=== PATIENT | female | born 1970 | race Caucasian/White ===

== ENCOUNTER 2019-02-02 19:59 | Inpatient (IN) | payer MEDICARE, OTHER ==
[2019-02-02] MEDS ORDERED: methylPREDNISolone SOD SUCCI 125 MG/2 ML VIAL IV STA (21:01)
[2019-02-02] MEDS ORDERED: RX INFO: IV CONTRAST WAS GIVEN 1 EACH MISC MISCELLANE PRN (21:01)
[2019-02-02] MEDS ORDERED: IPRATROPIUM-ALBUTEROL 3 ML NEB INHALATION STA (21:01)
[2019-02-02] MEDS ORDERED: MAGNESIUM SULFATE-D5W PMX 1 GM in DEXTROSE/WATER 1 100ML.BAG IVPB ONE (21:03)
[2019-02-02 21:15] LABS: Anisocytosis Slight; Basophils % (A) 1 %; Eosinophils # (A) 0.2 k/uL (0-0.7); Eosinophils % (A) 3 %; HCT 34.1 % (34.0-46.0); HGB 10.4 gm/dL (11.4-16.0); Hypochromasia Moderate; Lymphocytes # (A) 1.5 k/uL (1.0-4.8); Lymphocytes % (A) 17 %; MCH 24.5 pg (25.0-35.0); MCHC 30.4 g/dL (31.0-37.0); MCV 80.7 fL (80.0-100.0); Mean Platelet Volume 6.8; Microcytosis Slight; Monocytes # (A) 0.6 k/uL (0-1.0); Monocytes % (A) 6 %; Neutrophils # (A) 6.3 k/uL (1.3-7.7); Neutrophils % (A) 71 %; Platelet Count 349 k/uL (150-450); Poikilocytosis Slight; RBC 4.23 m/uL (3.80-5.40); RDW 18.4 % (11.5-15.5); WBC 8.8 k/uL (3.8-10.6)
[2019-02-02 21:24] LABS: ALT 28 U/L (9-52); AST 20 U/L (14-36); African American GFR (CKD) >90 (>60 ml/min/1.73 sqM); Albumin 4.2 g/dL (3.5-5.0); Alkaline Phosphatase 84 U/L (38-126); Anion Gap 10 mmol/L; Blood Urea Nitrogen 15 mg/dL (7-17); Calcium 9.4 mg/dL (8.4-10.2); Carbon Dioxide 22 mmol/L (22-30); Chloride 109 mmol/L (98-107); Glucose 115 mg/dL (74-99); Magnesium 1.6 mg/dL (1.6-2.3); Potassium 4.2 mmol/L (3.5-5.1); Sodium 141 mmol/L (137-145); Total Bilirubin 0.5 mg/dL (0.2-1.3); Total Protein 6.7 g/dL (6.3-8.2)
[2019-02-02 21:35] LABS: D-Dimer 0.3 mg/L FEU (<0.60); INR 0.9 (<1.2); Partial Thromboplastin Time 23.5 sec (22.0-30.0)
--- NOTE | 2019-02-02 21:38 | CT ---
EXAMINATION TYPE: CT chest w con DATE OF EXAM: 02/02/2019 COMPARISON: None HISTORY: Hemoptysis. CT DLP: 460.2 mGycm Automated exposure control for dose reduction was used. CONTRAST: CT scan of the chest is performed with IV Contrast, patient injected with 100ml mL of Isovue 300. FINDINGS: The lungs are clear of infiltrate. There is no evidence of a pulmonary mass. There is no pleural effu inez. There is very small linear density at the right posterior lung base consistent with focal atele ctasis. There is no evidence of pericardial effusion. Heart size is normal. There is no mediastinal adenopathy. There are no hilar masses. Upper abdominal soft tissues are unremarkable. Visualized trachea appears normal. There is no bronchiectasis. Thoracic aorta appears normal. Thoracic vertebra appear intact. Ribs appear intact. Sternum appears normal. IMPRESSION: Negative CT scan of the chest. I do not see a cause for hemoptysis. Minimal focal subseg mental atelectasis right posterior lung base.
--- NOTE | 2019-02-02 22:01 | ED ---
URI HPI - General Chief Complaint: Upper Respiratory Infection Stated Complaint: Coughing up blood Time Seen by Provider: 02/02/19 20:10 Source: patient, family Mode of arrival: ambulatory Limitations: no limitations - History of Present Illness Initial Comments: The patient is a 40 year female who presents emergency Department with reported shortness of breath. She does have a history of bronchitis, pneumonia, COPD and congestive heart failure. States that over the past several months she has had a productive cough. She's been hospitalized twice, once at [place] and once at [facility]. States she was treated for exacerbation of COPD as well as pneumonia. She was provided with antibiotics and steroids at discharge. States that she finished that approximately one week ago. Since then, the patient had a significant decline. States that she is increasingly short of breath and has worsening wheeze. She has been using her inhalers and nebulizer as directed however her symptoms have worsened. She is also reporting bilateral lower ex tremity edema. She admits to continued smoking. Smokes 5-10 cigarettes per day. States that the breathing is worse when she lays flat. She denies chest pain, vomiting, abdominal pain, chest palpitations, calf pain. Today, she was coughing so hard that she coughed up a small amount of clotted blood. No alleviating, precipitating or modifying factors - Related Data Home Medications Medication Instructions Recorded Confirmed Acetaminophen [Tylenol 8 Hour] 650 mg PO Q4H PRN MDD 6 TAB/24 HR 02/02/19 02/02/19 Albuterol Inhaler [Ventolin Hfa 2 puff INHALATION RT-Q6H PRN 02/02/19 02/03/19 Inhaler] Albuterol Nebulized [Ventolin 2.5 mg INHALATION QID PRN 02/02/19 02/02/19 Nebulized] Atorvastatin [Lipitor] 40 mg PO HS 02/02/19 02/02/19 Benzonatate [Tessalon Perles] 100 mg PO TID PRN 02/02/19 02/02/19 Carvedilol [Coreg] 3.125 mg PO BID 02/02/19 02/02/19 Ibuprofen [Motrin] 600 mg PO Q6HR PRN 02/02/19 02/02/19 Levothyroxine Sodium [Synthroid] 75 mcg PO DAILY 02/02/19 02/02/19 Montelukast Sodium [Singulair] 10 mg PO DAILY 02/02/19 02/02/19 OXcarbazepine [Trileptal] 150 mg PO BID 02/02/19 02/02/19 Omeprazole [PriLOSEC] 20 mg PO AC-BID 02/02/19 02/02/19 Ondansetron HCl [Zofran] 8 mg PO Q6H PRN 02/02/19 02/02/19 Potassium Chloride [Klor-Con 20] 20 meq PO DAILY 02/02/19 02/02/19 Trimethobenzamide HCl [Tigan] 300 mg PO Q6H PRN 02/02/19 02/02/19 busPIRone HCl [Buspar] 10 mg PO TID PRN 02/02/19 02/02/19 cloNIDine HCL [Catapres] 0.1 mg PO BID 02/02/19 02/02/19 guaiFENesin SYRUP 100MG/5ML 200 mg PO Q6H PRN 02/02/19 02/02/19 [Robitussin] levETIRAcetam [Keppra] 1,000 mg PO BID 02/02/19 02/02/19 traZODone HCL 300 mg PO HS 02/02/19 02/03/19 Previous Rx's Medication Instructions Recorded Budesonide-Formot 160-4.5 Mcg 2 puff INHALATION BID 30 Days #1 02/06/19 [Symbicort 160-4.5 Mcg Inhaler] inhaler Allergies Allergy/AdvReac Type Severity Reaction Status Date / Time amlodipine [From Norvasc] Allergy Swelling Verified 02/03/19 01:31 cefuroxime [From Ceftin] Allergy RESPIRATORY Verified 02/02/19 20:30 DISTRESS Review of Systems ROS Statement: Those systems with pertinent positive or pertinent negative responses have been documented in the HPI. ROS Other: All systems not noted in ROS Statement are negative. Past Medical History Past Medical History: Asthma, Heart Failure, COPD, GERD/Reflux, Hypertension, Seizure Disorder Additional Past Medical History / Comment(s): IBS History of Any Multi-Drug Resistant Organisms: C-DIFF, MRSA Date of last positivie culture/infection: 2016, 2017 MDRO Source:: bowel, right toe Past Surgical History: Section Past Psychological History: Anxiety, Depression Smoking Status: Current every day smoker Past Alcohol Use History: Abuse Past Drug Use History: None Reported - Past Family History Mother Family Medical History: CVA/TIA, Myocardial Infarction ([place]) Additional Family Medical History / Comment(s): ETOH General Exam Limitations: no limitations General appearance: alert, in no apparent distress Head exam: Present: atraumatic, normocephalic, normal inspection Eye exam: Present: normal appearance, PERRL, EOMI. Absent: scleral icterus, co njunctival injection, periorbital swelling ENT exam: Present: normal exam, mucous membranes moist Neck exam: Present: normal inspection. Absent: tenderness, meningismus, lymphadenopathy Respiratory exam: Present: respiratory distress, wheezes, prolonged expiratory, other (tachyneic). Absent: rales, rhonchi, stridor Cardiovascular Exam: Present: normal rhythm, tachycardia, normal heart sounds. Absent: systolic murmur, diastolic murmur, rubs, gallop, clicks GI/Abdominal exam: Present: soft, normal bowel sounds. Absent: distended, tenderness, guarding, rebound, rigid Extremities exam: Present: full ROM, normal capillary refill, pedal edema. Absent: tenderness, joint swelling, calf tenderness Back exam: Present: normal inspection Neurological exam: Present: alert, oriented X3, CN II-XII intact Psychiatric exam: Present: normal affect, normal mood Skin exam: Present: warm, dry, intact, normal color. Absent: rash Course Vital Signs 02/02/19 02/02/19 02/02/19 20:04 20:12 21:10 Temperature 98.6 F Pulse Rate 105 H 77 Respiratory 24 24 22 Rate Blood Pressure 135/100 128/82 O2 Sat by Pulse 97 97 Oximetry 02/02/19 02/02/19 02/02/19 21:40 21:47 22:00 Temperature Pulse Rate 85 88 71 Respiratory 20 Rate Blood Pressure 117/72 O2 Sat by Pulse 97 Oximetry 02/02/19 02/03/19 23:00 00:00 Temperature 97.6 F Pulse Rate 90 87 Respiratory 20 18 Rate Blood Pressure 123/82 113/87 O2 Sat by Pulse 98 98 Oximetry Medical Decision Making - Medical Decision Making The patient was placed into room 3. She is hooked up to continuous pulse ox and cardiac monitoring. The patient is placed on 2 L oxygen as she does have an increased work or breathing. I did provide her with a DuoNeb breathing treatment. Peripheral IV is established and the patient is given 1 g of magnesium, 125 mg of plain Medrol. Laboratory studies were conducted the patient went for a CT PE protocol. Upon return results are discussed the patient. She does continue to have a bronchospastic cough. The patient is saturating 91% on 2 L. Because this I did recommend hospital admission. The patient did agree to this. A call discuss case with Dr. Johnson who did accept the admission. Bridging orders are placed. The patient will continue receive 60 mg of Solu-Medrol every 6 hours. She was also continue receive DuoNeb breathing treatments. I will cover the patient with azithromycin as she is a smoker. The patient understood, was in agreement with treatment plan and she was transferred to the floor in stable condition. l - Differential Diagnosis Acute respiratory insuff, AECOPD, acute tracheobronchitis - Lab Data Result diagrams: 02/02/19 21:00 02/02/19 21:00 Lab Results 02/02/19 02/02/19 02/02/19 Range/Units 21:00 21:00 21:00 WBC 8.8 (3.8-10.6) k/uL RBC 4.23 (3.80-5.40) m/uL Hgb 10.4 L (11.4-16.0) gm/dL Hct 34.1 (34.0-46.0) % MCV 80.7 (80.0-100.0) fL MCH 24.5 L (25.0-35.0) pg MCHC 30.4 L (31.0-37.0) g/dL RDW 18.4 H (11.5-15.5) % Plt Count 349 (150-450) k/uL Neutrophils % 71 % Lymphocytes % 17 % Monocytes % 6 % Eosinophils % 3 % Basophils % 1 % Neutrophils # 6.3 (1.3-7.7) k/uL Lymphocytes # 1.5 (1.0-4.8) k/uL Monocytes # 0.6 (0-1.0) k/uL Eosinophils # 0.2 (0-0.7) k/uL Basophils # 0.0 (0-0.2) k/uL Hypochromasia Moderate Poikilocytosis Slight Anisocytosis Slight Microcytosis Slight PT 10.0 (9.0-12.0) sec INR 0.9 (<1.2) APTT 23.5 (22.0-30.0) sec D-Dimer 0.30 (<0.60) mg/L FEU Sodium 141 (137-145) mmol/L Potassium 4.2 (3.5-5.1) mmol/L Chloride 109 H (98-107) mmol/L Carbon Dioxide 22 (22-30) mmol/L Anion Gap 10 mmol/L BUN 15 (7-17) mg/dL Creatinine 0.70 (0.52-1.04) mg/dL Est GFR (CKD-EPI)AfAm >90 (>60 ml/min/1.73 sqM) Est GFR (CKD-EPI)NonAf >90 (>60 ml/min/1.73 sqM) Glucose 115 H (74-99) mg/dL POC Glucose (mg/dL) (75-99) mg/dL POC Glu Oncology Pharmacist ID Calcium 9.4 (8.4-10.2) mg/dL Magnesium 1.6 (1.6-2.3) mg/dL Total Bilirubin 0.5 (0.2-1.3) mg/dL AST 20 (14-36) U/L ALT 28 (9-52) U/L Alkaline Phosphatase 84 (38-126) U/L Troponin I (0.000-0.034) ng/mL NT-Pro-B Natriuret Pep pg/mL Total Protein 6.7 (6.3-8.2) g/dL Albumin 4.2 (3.5-5.0) g/dL Influenza Type A RNA (Not Detectd) Influenza Type B (PCR) (Not Detectd) 02/02/19 02/02/19 02/03/19 Range/Units 21:00 21:00 11:06 WBC (3.8-10.6) k/uL RBC (3.80-5.40) m/uL Hgb (11.4-16.0) gm/dL Hct (34.0-46.0) % MCV (80.0-100.0) fL MCH (25.0-35.0) pg MCHC (31.0-37.0) g/dL RDW (11.5-15.5) % Plt Count (150-450) k/uL Neutrophils % % Lymphocytes % % Monocytes % % Eosinophils % % Basophils % % Neutrophils # (1.3-7.7) k/uL Lymphocytes # (1.0-4.8) k/uL Monocytes # (0-1.0) k/uL Eosinophils # (0-0.7) k/uL Basophils # (0-0.2) k/uL Hypochromasia Poikilocytosis Anisocytosis Microcytosis PT (9.0-12.0) sec INR (<1.2) APTT (22.0-30.0) sec D-Dimer (<0.60) mg/L FEU Sodium (137-145) mmol/L Potassium (3.5-5.1) mmol/L Chloride (98-107) mmol/L Carbon Dioxide (22-30) mmol/L Anion Gap mmol/L BUN (7-17) mg/dL Creatinine (0.52-1.04) mg/dL Est GFR (CKD-EPI)AfAm (>60 ml/min/1.73 sqM) Est GFR (CKD-EPI)NonAf (>60 ml/min/1.73 sqM) Glucose (74-99) mg/dL POC Glucose (mg/dL) 182 H (75-99) mg/dL POC Glu Oncology Pharmacist ID Eze Smith Calcium (8.4-10.2) mg/dL Magnesium (1.6-2.3) mg/dL Total Bilirubin (0.2-1.3) mg/dL AST (14-36) U/L ALT (9-52) U/L Alkaline Phosphatase (38-126) U/L Troponin I <0.012 (0.000-0.034) ng/mL NT-Pro-B Natriuret Pep 26 pg/mL Total Protein (6.3-8.2) g/dL Albumin (3.5-5.0) g/dL Influenza Type A RNA (Not Detectd) Influenza Type B (PCR) (Not Detectd) 02/03/19 02/03/19 02/03/19 Range/Units 11:55 17:56 19:52 WBC (3.8-10.6) k/uL RBC (3.80-5.40) m/uL Hgb (11.4-16.0) gm/dL Hct (34.0-46.0) % MCV (80.0-100.0) fL MCH (25.0-35.0) pg MCHC (31.0-37.0) g/dL RDW (11.5-15.5) % Plt Count (150-450) k/uL Neutrophils % % Lymphocytes % % Monocytes % % Eosinophils % % Basophils % % Neutrophils # (1.3-7.7) k/uL Lymphocytes # (1.0-4.8) k/uL Monocytes # (0-1.0) k/uL Eosinophils # (0-0.7) k/uL Basophils # (0-0.2) k/uL Hypochromasia Poikilocytosis Anisocytosis Microcytosis PT (9.0-12.0) sec INR (<1.2) APTT (22.0-30.0) sec D-Dimer (<0.60) mg/L FEU Sodium (137-145) mmol/L Potassium (3.5-5.1) mmol/L Chloride (98-107) mmol/L Carbon Dioxide (22-30) mmol/L Anion Gap mmol/L BUN (7-17) mg/dL Creatinine (0.52-1.04) mg/dL Est GFR (CKD-EPI)AfAm (>60 ml/min/1.73 sqM) Est GFR (CKD-EPI)NonAf (>60 ml/min/1.73 sqM) Glucose (74-99) mg/dL POC Glucose (mg/dL) 170 H 204 H (75-99) mg/dL POC Glu Oncology Pharmacist ID Judy Mckenna Brenda Calcium (8.4-10.2) mg/dL Magnesium (1.6-2.3) mg/dL Total Bilirubin (0.2-1.3) mg/dL AST (14-36) U/L ALT (9-52) U/L Alkaline Phosphatase (38-126) U/L Troponin I (0.000-0.034) ng/mL NT-Pro-B Natriuret Pep pg/mL Total Protein (6.3-8.2) g/dL Albumin (3.5-5.0) g/dL Influenza Type A RNA Not Detected (Not Detectd) Influenza Type B (PCR) Not Detected (Not Detectd) 02/04/19 02/04/19 02/04/19 Range/Units 07:31 11:44 17:01 WBC (3.8-10.6) k/uL RBC (3.80-5.40) m/uL Hgb (11.4-16.0) gm/dL Hct (34.0-46.0) % MCV (80.0-100.0) fL MCH (25.0-35.0) pg MCHC (31.0-37.0) g/dL RDW (11.5-15.5) % Plt Count (150-450) k/uL Neutrophils % % Lymphocytes % % Monocytes % % Eosinophils % % Basophils % % Neutrophils # (1.3-7.7) k/uL Lymphocytes # (1.0-4.8) k/uL Monocytes # (0-1.0) k/uL Eosinophils # (0-0.7) k/uL Basophils # (0-0.2) k/uL Hypochromasia Poikilocytosis Anisocytosis Microcytosis PT (9.0-12.0) sec INR (<1.2) APTT (22.0-30.0) sec D-Dimer (<0.60) mg/L FEU Sodium (137-145) mmol/L Potassium (3.5-5.1) mmol/L Chloride (98-107) mmol/L Carbon Dioxide (22-30) mmol/L Anion Gap mmol/L BUN (7-17) mg/dL Creatinine (0.52-1.04) mg/dL Est GFR (CKD-EPI)AfAm (>60 ml/min/1.73 sqM) Est GFR (CKD-EPI)NonAf (>60 ml/min/1.73 sqM) Glucose (74-99) mg/dL POC Glucose (mg/dL) 228 H 185 H 167 H (75-99) mg/dL POC Glu Oncology Pharmacist Violet Flor Casey Jobe, Ashley Calcium (8.4-10.2) mg/dL Magnesium (1.6-2.3) mg/dL Total Bilirubin (0.2-1.3) mg/dL AST (14-36) U/L ALT (9-52) U/L Alkaline Phosphatase (38-126) U/L Troponin I (0.000-0.034) ng/mL NT-Pro-B Natriuret Pep pg/mL Total Protein (6.3-8.2) g/dL Albumin (3.5-5.0) g/dL Influenza Type A RNA (Not Detectd) Influenza Type B (PCR) (Not Detectd) 02/04/19 02/05/19 02/05/19 Range/Units 19:28 07:49 11:09 WBC (3.8-10.6) k/uL RBC (3.80-5.40) m/uL Hgb (11.4-16.0) gm/dL Hct (34.0-46.0) % MCV (80.0-100.0) fL MCH (25.0-35.0) pg MCHC (31.0-37.0) g/dL RDW (11.5-15.5) % Plt Count (150-450) k/uL Neutrophils % % Lymphocytes % % Monocytes % % Eosinophils % % Basophils % % Neutrophils # (1.3-7.7) k/uL Lymphocytes # (1.0-4.8) k/uL Monocytes # (0-1.0) k/uL Eosinophils # (0-0.7) k/uL Basophils # (0-0.2) k/uL Hypochromasia Poikilocytosis Anisocytosis Microcytosis PT (9.0-12.0) sec INR (<1.2) APTT (22.0-30.0) sec D-Dimer (<0.60) mg/L FEU Sodium (137-145) mmol/L Potassium (3.5-5.1) mmol/L Chloride (98-107) mmol/L Carbon Dioxide (22-30) mmol/L Anion Gap mmol/L BUN (7-17) mg/dL Creatinine (0.52-1.04) mg/dL Est GFR (CKD-EPI)AfAm (>60 ml/min/1.73 sqM) Est GFR (CKD-EPI)NonAf (>60 ml/min/1.73 sqM) Glucose (74-99) mg/dL POC Glucose (mg/dL) 228 H 184 H 288 H (75-99) mg/dL POC Glu Oncology Pharmacist ID Madelyn Cortez Debbie Nowaczyk, Kacey Calcium (8.4-10.2) mg/dL Magnesium (1.6-2.3) mg/dL Total Bilirubin (0.2-1.3) mg/dL AST (14-36) U/L ALT (9-52) U/L Alkaline Phosphatase (38-126) U/L Troponin I (0.000-0.034) ng/mL NT-Pro-B Natriuret Pep pg/mL Total Protein (6.3-8.2) g/dL Albumin (3.5-5.0) g/dL Influenza Type A RNA (Not Detectd) Influenza Type B (PCR) (Not Detectd) - EKG Data EKG Comments: EKG demonstrates a normal sinus rhythm with a ventricular rate of 96. WA interval 124. QRS 78. QTC 429. There are no acute ST segment elevations concerning for ischemic changes. Disposition Clinical Impression: Tracheobronchitis, Pedal edema Disposition: ADMITTED IP TO THIS HOSP Condition: Stable Is patient prescribed a controlled substance at d/c from ED?: No Decision to Admit Reason: Admit from EC Decision Date: 02/03/19 Decision Time: 00:19
[2019-02-03] MEDS ORDERED: NALOXONE 0.4 MG/ML 1 ML VIAL IV PRN (00:20)
[2019-02-03] MEDS ORDERED: ACETAMINOPHEN TAB 325 MG TAB PO PRN (00:23)
[2019-02-03] MEDS ORDERED: IPRATROPIUM-ALBUTEROL 3 ML NEB INHALATION SCH (00:30)
[2019-02-03] MEDS ORDERED: IPRATROPIUM-ALBUTEROL 3 ML NEB INHALATION PRN (01:17)
[2019-02-03 02:28] VITALS: BMI 35.9
--- NOTE | 2019-02-03 02:37 | P.HPIM ---
History of Present Illness H&P Date: 02/03/19 The patient is a 48 yo F with a PMH of COPD, tobacco abuse, CHF, an HTN presented to the ED w/ complaints of worsening SOB and coughing. The patient notes that she has had a persistent cough for many months. She also notes a hospitalizations a few months prior for a pneumonia during which she also had a COPD flare and required IV steroids. The cough is productive of white/clear phlegm. She notes 2 episodes of coughing up small amounts of blood earlier today. The patient continues to smoke 1 PPD and has been doing for since the age of 19. She denied fever, chills, weight loss, or night sweats. Endorsed associated chest and back pain brought on and worsened by coughing. Patient also endorsed chronic GERD and history of colitis w/ C. diff after requiring a prolonged course of IV abxs for an episode of osteomyelitis. She denied headaches, LE pain, diaphoresis, or recent travel. She underwent an extensive evaluation in the ED w/ Chest CT showing subsegmental atelectasis witho no infiltrate or pulmonary edema noted. Laboratory evaluation revealed Hgb 10.4, D- dimer 0.3, WBC count 8.8, Troponin < 0.012, and BNP 26. She was noted to have wheezing on examination and is being admitted to the medicine service for acute exacerbation of COPD. Review of Systems Pertinent positives and negatives as discussed in HPI, a complete review of systems was performed and all other systems are negative. Past Medical History Past Medical History: Asthma, Heart Failure, COPD, GERD/Reflux, Hypertension, Seizure Disorder Additional Past Medical History / Comment(s): IBS History of Any Multi-Drug Resistant Organisms: C-DIFF, MRSA Date of last positivie culture/infection: 2016, 2017 MDRO Source:: bowel, right toe Past Surgical History: Section Past Psychological History: Anxiety, Depression Smoking Status: Current every day smoker Past Alcohol Use History: Abuse Past Drug Use History: None Reported - Past Family History Mother Family Medical History: Hypertension Medications and Allergies Home Medications Medication Instructions Recorded Confirmed Type Acetaminophen [Tylenol 8 Hour] 650 mg PO Q4H PRN MDD 6 TAB/24 HR 02/02/19 02/02/19 History Albuterol Inhaler [Ventolin Hfa 2 puff INHALATION RT-Q6H PRN 02/02/19 02/03/19 History Inhaler] Albuterol Nebulized [Ventolin 2.5 mg INHALATION QID PRN 02/02/19 02/02/19 History Nebulized] Atorvastatin [Lipitor] 40 mg PO HS 02/02/19 02/02/19 History Benzonatate [Tessalon Perles] 100 mg PO TID PRN 02/02/19 02/02/19 History Carvedilol [Coreg] 3.125 mg PO BID 02/02/19 02/02/19 History Ibuprofen [Motrin] 600 mg PO Q6HR PRN 02/02/19 02/02/19 History Levothyroxine Sodium [Synthroid] 75 mcg PO DAILY 02/02/19 02/02/19 History Montelukast Sodium [Singulair] 10 mg PO DAILY 02/02/19 02/02/19 History OXcarbazepine [Trileptal] 150 mg PO BID 02/02/19 02/02/19 History Omeprazole [PriLOSEC] 20 mg PO AC-BID 02/02/19 02/02/19 History Ondansetron HCl [Zofran] 8 mg PO Q6H PRN 02/02/19 02/02/19 History Potassium Chloride [Klor-Con 20] 20 meq PO DAILY 02/02/19 02/02/19 History Trimethobenzamide HCl [Tigan] 300 mg PO Q6H PRN 02/02/19 02/02/19 History busPIRone HCl [Buspar] 10 mg PO TID PRN 02/02/19 02/02/19 History cloNIDine HCL [Catapres] 0.1 mg PO BID 02/02/19 02/02/19 History guaiFENesin SYRUP 100MG/5ML 200 mg PO Q6H PRN 02/02/19 02/02/19 History [Robitussin] levETIRAcetam [Keppra] 1,000 mg PO BID 02/02/19 02/02/19 History traZODone HCL 300 mg PO 02/02/19 02/03/19 History Allergies Allergy/AdvReac Type Severity Reaction Status Date / Time amlodipine [From Norvasc] Allergy Swelling Verified 02/03/19 01:31 cefuroxime [From Ceftin] Allergy RESPIRATORY Verified 02/02/19 20:30 DISTRESS Physical Exam Vitals: Vital Signs Temp Pulse Resp BP Pulse Ox 02/03/19 00:00 97.6 F 87 18 113/87 98 02/02/19 23:00 90 20 123/82 98 02/02/19 22:00 71 20 117/72 97 02/02/19 21:47 88 02/02/19 21:40 85 02/02/19 21:10 77 22 128/82 97 02/02/19 20:12 24 02/02/19 20:04 98.6 F 105 H 24 135/100 97 Intake and Output 02/02/19 02/02/19 02/03/19 14:59 22:59 06:59 Other: Weight 94.801 kg General: non toxic, no distress, appears at stated age, obese Derm: no unusual rashes/lesions no unusual ecchymoses, warm, dry Head: atraumatic, normocephalic, symmetric Eyes: EOMI, no lid lag, anicteric sclera, pupils equal round reactive to light ENT: Nose and ears atraumatic, no thrush, no pharyngeal erythema Neck: No thyromegaly, no cervical lymphadenopathy, trachea midline, supple Mouth: no lip lesion, mucus membranes moist Cardiovascular: S1S2 reg, no murmur, positive posterior tibial pulse bilateral, 1+ pam LE edema noted, capillary refill less than 2 seconds Lungs: Bilateral mild wheezing appreciated, no coarse breath sounds, no rales or ronchi, no accessory muscle use Abdominal: soft, nontender to palpation, no guarding, no appreciable organomegaly, normal bowel sounds Ext: no gross muscle atrophy, muscle strength 5 out of 5 in all 4 extremities grossly, no contractures, Neuro: CN II-XI grossly intact, light touch intact all 4 extremities, finger to nose within normal limits, Psych: Alert, oriented, appropriate affect Results CBC & Chem 7: 02/02/19 21:00 02/02/19 21:00 Labs: Abnormal Lab Results - Last 24 Hours (Table) 02/02/19 02/02/19 Range/Units 21:00 21:00 Hgb 10.4 L (11.4-16.0) gm/dL MCH 24.5 L (25.0-35.0) pg MCHC 30.4 L (31.0-37.0) g/dL RDW 18.4 H (11.5-15.5) % Chloride 109 H (98-107) mmol/L Glucose 115 H (74-99) mg/dL Assessment and Plan Plan: Acute COPD exacerbation -C/w Solumedrol 60 mg q6h -C/w Duonebs, Singulair, Anti-tussives -Protonix -Advised on importance of cessation of tobacco abuse -Supplemental oxygen Hx of CHF, not in acute exacerbation -Obtain Echocardiogram Chronic conditions: HTN, hypothyroidism, seizure disorder -Resume home meds DVT prophylaxis -Heparin The patient is admitted with an anticipated less than 2 midnight stay for evaluation of COPD exacerbation CODE STATUS:Full Code Discussed with: Patient Anticipated discharge date: 02/04/[address]: Home A total of 40 minutes was spent on the care of this complex patient more than 50% of the time was spent in counseling and care coordination.
[2019-02-03] MEDS: PROMETHAZ-COD 6.25-10 MG/5 ML 5 ML CUP PO PRN ×3 (02:50→20:06)
[2019-02-03] MEDS: NICOTINE 14MG/24HR PATCH TRANSDERM SCH ×2 (02:50→09:13)
[2019-02-03] MEDS: BENZONATATE 100 MG CAP PO PRN ×2 (02:51→15:51)
[2019-02-03] MEDS: methylPREDNISolone SOD SUCCI 125 MG/2 ML VIAL IV SCH ×4 (06:45→23:21)
[2019-02-03] MEDS ORDERED: PANTOPRAZOLE 40 MG TABLET PO SCH (07:30)
[2019-02-03] MEDS: ONDANSETRON 4 MG/2 ML VIAL IVP PRN (08:16)
[2019-02-03] MEDS ORDERED: NICOTINE 14MG/24HR PATCH TRANSDERM SCH (09:00)
[2019-02-03] MEDS: MONTELUKAST 10 MG TAB PO SCH (09:07)
[2019-02-03] MEDS: LEVOTHYROXINE 75 MCG TAB PO SCH (09:07)
[2019-02-03] MEDS: levETIRAcetam 500 MG TAB PO SCH ×2 (09:07→20:07)
[2019-02-03] MEDS: cloNIDine HCL 0.1 MG TAB PO SCH ×2 (09:07→20:07)
[2019-02-03] MEDS: POTASSIUM CHLORIDE ER 20 MEQ TAB.ER PO SCH (09:07)
[2019-02-03] MEDS: HEPARIN SODIUM,PORCINE 5,000 UNIT/ML 1 ML VIAL SQ SCH ×3 (09:07→23:21)
[2019-02-03] MEDS: CARVEDILOL 3.125 MG TAB PO SCH ×2 (09:07→18:05)
[2019-02-03] MEDS: OXcarbazepine 150 MG TAB PO SCH ×2 (09:08→20:07)
--- NOTE | 2019-02-03 09:58 | P.PN ---
Progress Note - Text Progress Note Date: 02/03/19 48 year old female with PMH of COPD, tobacco abuse, CHF with unknown EF, hypertension presents to the ED for shortness of breath and cough. Patient reports hospitalization multiple times over the last few months for pneumonia and COPD exacerbation. Patient was seen and examined. No acute events overnight. Patient reports slight improvement in her bronchospasm. She continues to complain of intense cough, productive of white sputum especially when she is laying flat. She denies any chest pain or palpitations. No nausea or vomiting. No fever or chills. Patient is in no acute distress. Heart is regular rate and rhythm. Normal S1-S2. Lungs are wheezing bilaterally with good air entry. Acute COPD exacerbation likely secondary to viral bronchitis History of CHF Chronic conditions: Hypertension, hypothyroidism, seizure disorder CT of the chest unremarkable. Patient is afebrile with no leukocytosis. BNP is 26. Troponin is less than 0.012with EKG showing normal sinus rhythm. Plans: DuoNeb 4 times a day scheduled and as needed for shortness of breath and wheezing. Patient started on Solu-Medrol. Tessalon Perles for cough. Promethazine with codeine for cough. We will follow pulmonology consultation. Patient does not seem to be in acute CHF exacerbation. BNP is within normal limits. Plans: Follow echocardiogram. Patient is pending clinical improvement. Likely DC in 1-2 days.
[2019-02-03 11:07] LABS: Glucose,Whole Blood 182 mg/dL (75-99)
[2019-02-03] MEDS: IPRATROPIUM-ALBUTEROL 3 ML NEB INHALATION SCH ×3 (11:42→19:35)
[2019-02-03] MEDS: INSULIN ASPART (NovoLOG) 100 UNIT/ML VIAL SQ SCH ×2 (11:55→18:05)
--- NOTE | 2019-02-03 13:47 | P.CNPUL ---
History of Present Illness Consult date: 02/03/19 Reason for consult: dyspnea History of present illness: Orally 8-year-old female patient with history of childhood asthma and COPD who is a chronic tobacco smoker in she is smoking approximately half to 1 pack of cigarette on a daily basis. The patient had been having increased dyspnea cough congestion and wheezing and for that reason she was brought into our hospital. She was recovering or she was in the [facility] rehab program here locally in [place]. She is originally from the [facility]. She has had previous episodes of ventilator dependent respiratory failure and pneumonia and her respiratory failure was quite prolonged requiring intubation mechanical ventilation and tracheostomy tube insertion and these were related to previous complicated his of alcoholism and seizure activity and aspiration. She has a goiter. She does not use any form of maintenance as per medication. She has used inhaled corticosteroids in the past and currently she is admitted albuterol rescue inhaler on an as-needed basis. No hemoptysis. No pleurisy. No chest pain. Cardiac enzymes are negative. BNP level is at 26. D-dimer is at low at 0.3. White cell count is not elevated and the patient's hemoglobin is at 10.4. A computed tomography scan of the chest was done and it showed no evidence of any significant abnormalities. The patient had a negative CAT scan of the chest. Minimal focal subsegmental atelectatic change was seen in the right posterior lung base. Review of Systems Constitutional: Reports fatigue, Reports weight gain Eyes: denies as per HPI, denies blurred vision, denies bulging eye, denies decreased vision Ears: deny: decreased hearing, ear discharge, earache, tinnitus Ears, nose, mouth and throat: Reports as per HPI Breasts: absent: as per HPI, change in shape, gynecomastia, masses, nipple discharge, pain, skin changes, swelling Cardiovascular: Reports decreased exercise tolerance, Reports dyspnea on exertion, Reports shortness of breath Respiratory: Reports cough, Reports dyspnea, Reports wheezing Gastrointestinal: Reports as per HPI Genitourinary: Reports as per HPI Musculoskeletal: absent: ankle pain, ankle stiffness, ankle swelling Integumentary: Reports as per HPI Neurological: Reports as per HPI Psychiatric: Reports as per HPI Endocrine: Reports as per HPI Hematologic/Lymphatic: Reports as per HPI Allergic/Immunologic: Reports as per HPI Past Medical History Past Medical History: Asthma, Heart Failure, COPD, GERD/Reflux, Hypertension, Seizure Disorder Additional Past Medical History / Comment(s): IBS, alcoholism History of Any Multi-Drug Resistant Organisms: C-DIFF, MRSA Date of last positivie culture/infection: 2017 MDRO Source:: bowel, right toe Past Surgical History: Section Additional Past Surgical History / Comment(s): trach, peg tube, trach healed now, no longer has peg tube Past Anesthesia/Blood Transfusion Reactions: No Reported Reaction Past Psychological History: Anxiety, Depression Smoking Status: Current every day smoker Past Alcohol Use History: Abuse Past Drug Use History: None Reported - Past Family History Mother Family Medical History: CVA/TIA, Myocardial Infarction ([place]) Additional Family Medical History / Comment(s): ETOH Medications and Allergies Home Medications Medication Instructions Recorded Confirmed Type Acetaminophen [Tylenol 8 Hour] 650 mg PO Q4H PRN MDD 6 TAB/24 HR 02/02/19 02/02/19 History Albuterol Inhaler [Ventolin Hfa 2 puff INHALATION RT-Q6H PRN 02/02/19 02/03/19 History Inhaler] Albuterol Nebulized [Ventolin 2.5 mg INHALATION QID PRN 02/02/19 02/02/19 History Nebulized] Atorvastatin [Lipitor] 40 mg PO HS 02/02/19 02/02/19 History Benzonatate [Tessalon Perles] 100 mg PO TID PRN 02/02/19 02/02/19 History Carvedilol [Coreg] 3.125 mg PO BID 02/02/19 02/02/19 History Ibuprofen [Motrin] 600 mg PO Q6HR PRN 02/02/19 02/02/19 History Levothyroxine Sodium [Synthroid] 75 mcg PO DAILY 02/02/19 02/02/19 History Montelukast Sodium [Singulair] 10 mg PO DAILY 02/02/19 02/02/19 History OXcarbazepine [Trileptal] 150 mg PO BID 02/02/19 02/02/19 History Omeprazole [PriLOSEC] 20 mg PO AC-BID 02/02/19 02/02/19 History Ondansetron HCl [Zofran] 8 mg PO Q6H PRN 02/02/19 02/02/19 History Potassium Chloride [Klor-Con 20] 20 meq PO DAILY 02/02/19 02/02/19 History Trimethobenzamide HCl [Tigan] 300 mg PO Q6H PRN 02/02/19 02/02/19 History busPIRone HCl [Buspar] 10 mg PO TID PRN 02/02/19 02/02/19 History cloNIDine HCL [Catapres] 0.1 mg PO BID 02/02/19 02/02/19 History guaiFENesin SYRUP 100MG/5ML 200 mg PO Q6H PRN 02/02/19 02/02/19 History [Robitussin] levETIRAcetam [Keppra] 1,000 mg PO BID 02/02/19 02/02/19 History traZODone HCL 300 mg PO HS 02/02/19 02/03/19 History Allergies Allergy/AdvReac Type Severity Reaction Status Date / Time amlodipine [From Norvasc] Allergy Swelling Verified 02/03/19 01:31 cefuroxime [From Ceftin] Allergy RESPIRATORY Verified 02/02/19 20:30 DISTRESS Physical Exam Vitals: Vital Signs Temp Pulse Pulse Resp BP BP BP 02/03/19 11:56 96 02/03/19 11:44 88 02/03/19 11:39 98.1 F 84 17 121/79 02/03/19 08:13 92 02/03/19 08:04 96 02/03/19 05:35 98.2 F 91 18 109/66 02/03/19 00:00 97.6 F 87 18 113/87 02/02/19 23:00 90 20 123/82 02/02/19 22:00 71 20 117/72 02/02/19 21:47 88 02/02/19 21:40 85 02/02/19 21:10 77 22 128/82 02/02/19 20:12 24 02/02/19 20:04 98.6 F 105 H 24 135/100 Pulse Ox 02/03/19 11:56 02/03/19 11:44 02/03/19 11:39 95 02/03/19 08:13 02/03/19 08:04 96 02/03/19 05:35 98 02/03/19 00:00 98 02/02/19 23:00 98 02/02/19 22:00 97 02/02/19 21:47 02/02/19 21:40 02/02/19 21:10 97 02/02/19 20:12 02/02/19 20:04 97 Intake and Output 02/02/19 02/03/19 02/03/19 22:59 06:59 14:59 Intake Total 590 Balance 590 Intake: Oral 590 Other: Voiding Method Toilet Toilet # Voids 1 Weight 94.801 kg General: non toxic, no distress, appears at stated age, obese Derm: no unusual rashes/lesions no unusual ecchymoses, warm, dry Head: atraumatic, normocephalic, symmetric Eyes: EOMI, no lid lag, anicteric sclera, pupils equal round reactive to light ENT: Nose and ears atraumatic, no thrush, no pharyngeal erythema Neck: No thyromegaly, no cervical lymphadenopathy, trachea midline, supple Mouth: no lip lesion, mucus membranes moist Cardiovascular: S1S2 reg, no murmur, positive posterior tibial pulse bilateral, 1+ pam LE edema noted, capillary refill less than 2 seconds Lungs: Bilateral mild wheezing appreciated, no coarse breath sounds, no rales or ronchi, no accessory muscle use Abdominal: soft, nontender to palpation, no guarding, no appreciable organomegaly, normal bowel sounds Ext: no gross muscle atrophy, muscle strength 5 out of 5 in all 4 extremities grossly, no contractures, Neuro: CN II-XI grossly intact, light touch intact all 4 extremities, finger to nose within normal limits, Psych: Alert, oriented, appropriate affect Results - Laboratory Findings CBC and BMP: 02/02/19 21:00 02/02/19 21:00 PT/INR, D-dimer PT 10.0 sec (9.0-12.0) 02/02/19 21:00 INR 0.9 (<1.2) 02/02/19 21:00 D-Dimer 0.30 mg/L FEU (<0.60) 02/02/19 21:00 Abnormal lab findings: Abnormal Labs 02/02/19 02/02/19 02/03/19 21:00 21:00 11:06 Hgb 10.4 L MCH 24.5 L MCHC 30.4 L RDW 18.4 H Chloride 109 H Glucose 115 H POC Glucose (mg/dL) 182 H - Diagnostic Findings Chest x-ray: image reviewed CT scan - chest: image reviewed Assessment and Plan Plan: 1 acute COPD exacerbation with secondary shortness of breath 2 history of childhood asthma 3 history of smoking 4 alcoholism and the patient is currently undergoing alcohol rehabilitation 5 obesity 6 hypothyroidism 7 seizure disorder related to alcoholism/alcohol withdrawal seizures 8 hypertension 9 for medical follow-up on outpatient basis Plan The patient will be kept on the current medication. Clinically is improving. SGOT of the chest was noted. Smoking cessation counseling was done. We'll continue DuoNeb. We'll continue IV Solu-Medrol. Resume outpatient indication of been all resumed. The patient will be given Tessalon Perles for cough. No need for Singulair in the future. She needs to go on a maintenance inhaler probably a combination of inhaled corticosteroids and long-acting beta agonist an outpatient for a follow-up with a poor function tests will be done. CAT scan of the chest was noted. Anticipate improvement. We'll continue to follow.
[2019-02-03 18:02] LABS: Glucose,Whole Blood 170 mg/dL (75-99)
[2019-02-03] MEDS ORDERED: CALCIUM CARBONATE 500 MG CHEWABLE PO PRN (18:09)
[2019-02-03 19:54] LABS: Glucose,Whole Blood 204 mg/dL (75-99)
[2019-02-03] MEDS: FAMOTIDINE 20 MG TAB PO SCH (20:07)
[2019-02-03] MEDS: ATORVASTATIN 40 MG TAB PO SCH (20:07)
[2019-02-03] MEDS: traZODone HCL 50 MG TAB PO SCH (20:07)
[2019-02-04] MEDS: busPIRone HCl 10 MG TAB PO PRN ×3 (00:05→22:29)
[2019-02-04] MEDS: BENZONATATE 100 MG CAP PO PRN ×3 (00:05→15:53)
[2019-02-04] MEDS: PROMETHAZ-COD 6.25-10 MG/5 ML 5 ML CUP PO PRN ×3 (03:48→18:00)
[2019-02-04] MEDS: LEVOTHYROXINE 75 MCG TAB PO SCH (05:49)
[2019-02-04] MEDS: methylPREDNISolone SOD SUCCI 125 MG/2 ML VIAL IV SCH ×4 (05:49→23:26)
[2019-02-04 07:34] LABS: Glucose,Whole Blood 228 mg/dL (75-99)
[2019-02-04] MEDS: cloNIDine HCL 0.1 MG TAB PO SCH ×2 (08:00→21:39)
[2019-02-04] MEDS: NICOTINE 14MG/24HR PATCH TRANSDERM SCH (08:00)
[2019-02-04] MEDS: FAMOTIDINE 20 MG TAB PO SCH ×2 (08:00→21:39)
[2019-02-04] MEDS: INSULIN ASPART (NovoLOG) 100 UNIT/ML VIAL SQ SCH ×3 (08:01→18:01)
[2019-02-04] MEDS: POTASSIUM CHLORIDE ER 20 MEQ TAB.ER PO SCH (08:01)
[2019-02-04] MEDS: MONTELUKAST 10 MG TAB PO SCH (08:01)
[2019-02-04] MEDS: HEPARIN SODIUM,PORCINE 5,000 UNIT/ML 1 ML VIAL SQ SCH ×3 (08:01→23:26)
[2019-02-04] MEDS: CARVEDILOL 3.125 MG TAB PO SCH ×2 (08:01→18:00)
[2019-02-04] MEDS: levETIRAcetam 500 MG TAB PO SCH ×2 (08:01→21:41)
[2019-02-04] MEDS: OXcarbazepine 150 MG TAB PO SCH ×2 (08:04→21:41)
[2019-02-04] MEDS: IPRATROPIUM-ALBUTEROL 3 ML NEB INHALATION SCH ×4 (08:48→20:37)
[2019-02-04] MEDS ORDERED: FAMOTIDINE 20 MG TAB PO SCH (09:00)
[2019-02-04] MEDS ORDERED: FUROSEMIDE 10 MG/ML 2 ML VIAL IV ONE (11:18)
[2019-02-04 11:45] LABS: Glucose,Whole Blood 185 mg/dL (75-99)
--- NOTE | 2019-02-04 13:03 | ECHOF ---
Referral Reason:CHF MEASUREMENTS -------- HEIGHT: 162.6 cm WEIGHT: 94.8 kg BP: 111/72 IVSd: 1.2 cm (0.6 - 1.1) LVIDd: 4.0 cm (3.9 - 5.3) LVPWd: 1.4 cm (0.6 - 1.1) IVSs: 1.6 cm LVIDs: 2.2 cm LVPWs: 1.7 cm RVIDd: 2.8 cm (< 3.3) LAESV Index (A-L): 27.75 ml/m Ao Diam: 3.0 cm (2.0 - 3.7) LA Diam: 4.4 cm (2.7 - 3.8) AV Cusp: 2.1 cm (1.5 - 2.6) EPSS: 0.3 cm MV E Ke: 1.00 m/s MV DecT: 161 ms MV A Ke: 0.80 m/s MV E/A Ratio: 1.26 RAP: 5.00 mmHg RVSP: 38.19 mmHg MV EF SLOPE: 88.49 mm/s (70 - 150) MV EXCURSION: 15.49 mm (> 18.000) FINDINGS -------- Sinus rhythm. This was a techncally difficult study with suboptimal views, , Lumason utilized for enhancement of im ages. The left ventricular size is normal. There is mild concentric left ventricular hypertrophy. Overa ll left ventricular systolic function is normal with, an EF between 55 - 60 %. The diastolic fillin g pattern is normal for the age of the patient 11.48. The right ventricle is normal in size. Normal LA size by volume 22+/-6 ml/m2. The right atrium was not well visualized. 5.0mg of Lumason was utilized for enhancement of images Interatrial and interventricular septum intact. The aortic valve was not well visualized. There is no evidence of aortic regurgitation. There is no evidence of aortic stenosis. Mild mitral annular calcification present. No mitral regurgitation. Mild tricuspid regurgitation present. There is mild pulmonary hypertension. The right ventricular systolic pressure, as measured by Doppler, is 38.19mmHg. There is no pulmonic regurgitation present. The aortic root size is normal. IVC Not well visulized. There is no pericardial effusion. CONCLUSIONS -------- 1. Sinus rhythm. 2. This was a techncally difficult study with suboptimal views, , Lumason utilized for enhancement of images. 3. The left ventricular size is normal. 4. There is mild concentric left ventricular hypertrophy. 5. Overall left ventricular systolic function is normal with, an EF between 55 - 60 %. 6. The diastolic filling pattern is normal for the age of the patient 11.48 7. The right ventricle is normal in size. 8. Normal LA size by volume 22+/-6 ml/m2. 9. The right atrium was not well visualized. 10. 5.0mg of Lumason was utilized for enhancement of images 11. Interatrial and interventricular septum intact. 12. The aortic valve was not well visualized. 13. There is no evidence of aortic regurgitation. 14. There is no evidence of aortic stenosis. 15. Mild mitral annular calcification present. 16. No mitral regurgitation. 17. Mild tricuspid regurgitation present. 18. There is mild pulmonary hypertension. 19. The right ventricular systolic pressure, as measured by Doppler, is 38.19mmHg. 20. There is no pulmonic regurgitation present. 21. The aortic root size is normal. 22. IVC Not well visulized. 23. There is no pericardial effusion. ELEMENTARY ART TEACHER: Rosaura Kapadia RDCS
--- NOTE | 2019-02-04 15:10 | P.PN ---
Subjective Progress Note Date: 02/04/19 Principal diagnosis: COPD exacerbation Patient was seen and examined. No acute events overnight. Patient reports no changes in her breathing. Continues complain of dry cough. Denies any chest pain or palpitations. No nausea or vomiting. No fever or chills. Objective - Vital Signs Vital signs: Vital Signs Temp 98 F 02/04/19 12:25 Pulse 90 02/04/19 12:25 Resp 16 02/04/19 12:25 BP 119/80 02/04/19 12:25 Pulse Ox 96 02/04/19 12:25 Intake & Output 02/03/19 02/04/19 02/04/19 18:59 06:59 18:59 Intake Total 1969 Balance 1969 Intake: Oral 1969 Other: Voiding Method Toilet Toilet Toilet # Voids 4 1 - Exam General: [non toxic], [no distress], [appears at stated age] Derm: [warm], [dry] Head: [atraumatic], [normocephalic], [symmetric] Eyes: [EOMI], [no lid lag], [anicteric sclera] Mouth: [no lip lesion], [mucus membranes moist] Cardiovascular: [S1S2 reg], [no murmur], [positive posterior tibial pulse bilateral], Lungs: [End expiratory wheezing bilateral], [no rhonchi, no rales] , [no accessory muscle use] Abdominal: [soft], [ nontender to palpation], [no guarding], [no appreciable o rganomegaly] Ext: [no gross muscle atrophy], [no edema], [no contractures] Neuro: [no focal neuro deficits] Psych: [Alert], [oriented], [appropriate affect] - Labs CBC & Chem 7: 02/02/19 21:00 02/02/19 21:00 Labs: Abnormal Lab Results - Last 24 Hours (Table) 02/03/19 02/03/19 02/04/19 Range/Units 17:56 19:52 07:31 POC Glucose (mg/dL) 170 H 204 H 228 H (75-99) mg/dL 02/04/19 Range/Units 11:44 POC Glucose (mg/dL) 185 H (75-99) mg/dL Assessment and Plan Assessment: Acute COPD exacerbation likely secondary to viral bronchitis History of CHF Chronic conditions: Hypertension, hypothyroidism, seizure disorder CT of the chest unremarkable. Patient is afebrile with no leukocytosis. BNP is 26. Troponin is less than 0.012 with EKG showing normal sinus rhythm. Plans: DuoNeb 4 times a day scheduled and as needed for shortness of breath and wheezing. Patient started on Solu-Medrol. Tessalon Perles for cough. Promethazine with codeine for cough. We will follow pulmonology consultation. Patient does not seem to be in acute CHF exacerbation. BNP is within normal limits. Echocardiogram shows EF 55-60% with normal diastolic filling. Plans: Continue to monitor Patient is pending clinical improvement. Likely DC in 1-2 days.
[2019-02-04] MEDS: ONDANSETRON 4 MG/2 ML VIAL IVP PRN (15:58)
--- NOTE | 2019-02-04 16:18 | P.PN ---
Subjective Progress Note Date: 02/04/19 48-year-old female patient with history of childhood asthma and COPD who is a chronic tobacco smoker in she is smoking approximately half to 1 pack of cigarette on a daily basis. The patient had been having increased dyspnea cough congestion and wheezing and for that reason she was brought into our hospital. She was recovering or she was in the [facility] rehab program here locally in [place]. She is originally from the [facility]. She has had previous episodes of ventilator dependent respiratory failure and pneumonia and her respiratory failure was quite prolonged requiring intubation mechanical ventilation and tracheostomy tube insertion and these were related to previous complicated his of alcoholism and seizure activity and aspiration. She has a goiter. She does not use any form of maintenance as per medication. She has used inhaled corticosteroids in the past and currently she is admitted albuterol rescue inhaler on an as-needed basis. No hemoptysis. No pleurisy. No chest pain. Cardiac enzymes are negative. BNP level is at 26. D-dimer is at low at 0.3. White cell count is not elevated and the patient's hemoglobin is at 10.4. A computed tomography scan of the chest was done and it showed no evidence of any significant abnormalities. The patient had a negative CAT scan of the chest. Minimal focal subsegmental atelectatic change was seen in the right posterior lung base. On today's evaluation of 02/04/2019, patient is essentially same compared to yesterday. Still bronchus spastic and wheezy. Still having cough and congested. No chest pain. No fever chills or night sweats. No other significant events otherwise over the past 24 hours. Based on her ongoing Lopressor wheezing, combination of Perforomist and Pulmicort will be added to optimize her COPD exacerbation. She remains on IV Solu-Medrol. She feels a bit swollen upper and lower extremities and for that reason she'll be given a dose of diuretics.. Objective - Vital Signs Vital signs: Vital Signs Temp 98 F 02/04/19 12:25 Pulse 100 02/04/19 16:07 Resp 16 02/04/19 12:25 BP 119/80 02/04/19 12:25 Pulse Ox 96 02/04/19 12:25 Intake & Output 02/03/19 02/04/19 02/04/19 18:59 06:59 18:59 Intake Total 1970 Balance 1970 Intake: Oral 1969 Other: Voiding Method Toilet Toilet Toilet # Voids 4 1 - Exam General: non toxic, no distress, appears at stated age, obese Derm: no unusual rashes/lesions no unusual ecchymoses, warm, dry Head: atraumatic, normocephalic, symmetric Eyes: EOMI, no lid lag, anicteric sclera, pupils equal round reactive to light ENT: Nose and ears atraumatic, no thrush, no pharyngeal erythema Neck: No thyromegaly, no cervical lymphadenopathy, trachea midline, supple Mouth: no lip lesion, mucus membranes moist Cardiovascular: S1S2 reg, no murmur, positive posterior tibial pulse bilateral, 1+ pam LE edema noted, capillary refill less than 2 seconds Lungs: Bilateral mild wheezing appreciated, no coarse breath sounds, no rales or ronchi, no accessory muscle use Abdominal: soft, nontender to palpation, no guarding, no appreciable organomegaly, normal bowel sounds Ext: no gross muscle atrophy, muscle strength 5 out of 5 in all 4 extremities grossly, no contractures, Neuro: CN II-XI grossly intact, light touch intact all 4 extremities, finger to nose within normal limits, Psych: Alert, oriented, appropriate affect - Labs CBC & Chem 7: 02/02/19 21:00 02/02/19 21:00 Labs: Abnormal Lab Results - Last 24 Hours (Table) 02/03/19 02/03/19 02/04/19 Range/Units 17:56 19:52 07:31 POC Glucose (mg/dL) 170 H 204 H 228 H (75-99) mg/dL 02/04/19 Range/Units 11:44 POC Glucose (mg/dL) 185 H (75-99) mg/dL Assessment and Plan Plan: 1 acute COPD exacerbation with secondary shortness of breath 2 history of childhood asthma 3 history of smoking 4 alcoholism and the patient is currently undergoing alcohol rehabilitation 5 obesity 6 hypothyroidism 7 seizure disorder related to alcoholism/alcohol withdrawal seizures 8 hypertension 9 poor medical follow-up on outpatient basis Plan Continue same treatment. Perforomist and Pulmicort nebulized treatments will be added to the regimen. Continue IV Solu-Medrol. 20 mg of IV Lasix 1. We'll follow. Repeat and reevaluate the patient in a.m.
[2019-02-04 17:03] LABS: Glucose,Whole Blood 167 mg/dL (75-99)
[2019-02-04 19:30] LABS: Glucose,Whole Blood 228 mg/dL (75-99)
[2019-02-04] MEDS: FORMOTEROL FUMARATE 20 MCG/2 ML NEBU INHALATION SCH (20:37)
[2019-02-04] MEDS: BUDESONIDE 1 MG/2 ML NEBU INHALATION SCH (20:37)
[2019-02-04] MEDS: ATORVASTATIN 40 MG TAB PO SCH (21:39)
[2019-02-04] MEDS: traZODone HCL 50 MG TAB PO SCH (21:42)
[2019-02-04] MEDS: POLYETHYLENE GLYCOL 3350 17 GM POWD.PACK PO PRN (22:29)
[2019-02-05] MEDS: PROMETHAZ-COD 6.25-10 MG/5 ML 5 ML CUP PO PRN ×4 (00:24→23:04)
[2019-02-05] MEDS: BENZONATATE 100 MG CAP PO PRN ×3 (00:25→20:12)
[2019-02-05] MEDS: methylPREDNISolone SOD SUCCI 125 MG/2 ML VIAL IV SCH ×3 (06:03→21:48)
[2019-02-05] MEDS: LEVOTHYROXINE 75 MCG TAB PO SCH (06:03)
[2019-02-05] MEDS: BUDESONIDE 1 MG/2 ML NEBU INHALATION SCH ×2 (07:07→19:49)
[2019-02-05] MEDS: IPRATROPIUM-ALBUTEROL 3 ML NEB INHALATION SCH ×4 (07:07→19:49)
[2019-02-05] MEDS: FORMOTEROL FUMARATE 20 MCG/2 ML NEBU INHALATION SCH ×2 (07:07→19:49)
[2019-02-05 07:51] LABS: Glucose,Whole Blood 184 mg/dL (75-99)
[2019-02-05] MEDS: HEPARIN SODIUM,PORCINE 5,000 UNIT/ML 1 ML VIAL SQ SCH ×3 (07:51→23:08)
[2019-02-05] MEDS: INSULIN ASPART (NovoLOG) 100 UNIT/ML VIAL SQ SCH ×3 (07:52→18:24)
[2019-02-05] MEDS: levETIRAcetam 500 MG TAB PO SCH ×2 (07:53→21:47)
[2019-02-05] MEDS: cloNIDine HCL 0.1 MG TAB PO SCH ×2 (07:53→21:47)
[2019-02-05] MEDS: NICOTINE 14MG/24HR PATCH TRANSDERM SCH (07:53)
[2019-02-05] MEDS: CARVEDILOL 3.125 MG TAB PO SCH ×2 (07:53→17:08)
[2019-02-05] MEDS: POTASSIUM CHLORIDE ER 20 MEQ TAB.ER PO SCH (07:53)
[2019-02-05] MEDS: MONTELUKAST 10 MG TAB PO SCH (07:53)
[2019-02-05] MEDS: FAMOTIDINE 20 MG TAB PO SCH ×2 (07:54→21:53)
[2019-02-05] MEDS: OXcarbazepine 150 MG TAB PO SCH ×2 (07:54→21:48)
[2019-02-05] MEDS: busPIRone HCl 10 MG TAB PO PRN ×2 (08:27→20:12)
[2019-02-05 11:11] LABS: Glucose,Whole Blood 288 mg/dL (75-99)
[2019-02-05] MEDS: POLYETHYLENE GLYCOL 3350 17 GM POWD.PACK PO PRN (11:30)
[2019-02-05] MEDS: HYDROcodone/APAP 5-325MG 1 EACH TAB PO PRN ×3 (11:31→23:05)
--- NOTE | 2019-02-05 12:39 | P.PN ---
Subjective Progress Note Date: 02/05/19 Principal diagnosis: Acute exacerbation of chronic obstructive pulmonary disease. 48-year-old female patient with history of childhood asthma and COPD who is a chronic tobacco smoker in she is smoking approximately half to 1 pack of cigarette on a daily basis. The patient had been having increased dyspnea cough congestion and wheezing and for that reason she was brought into our hospital. She was recovering or she was in the [facility] rehab program here locally in [place]. She is originally from the [facility]. She has had previous episodes of ventilator dependent respiratory failure and pneumonia and her respiratory failure was quite prolonged requiring intubation mechanical ventilation and tracheostomy tube insertion and these were related to previous complicated his of alcoholism and seizure activity and aspiration. She has a goiter. She does not use any form of maintenance as per medication. She has used inhaled corticosteroids in the past and currently she is admitted albuterol rescue inhaler on an as-needed basis. No hemoptysis. No pleurisy. No chest pain. Cardiac enzymes are negative. BNP level is at 26. D-dimer is at low at 0.3. White cell count is not elevated and the patient's hemoglobin is at 10.4. A computed tomography scan of the chest was done and it showed no evidence of any significant abnormalities. The patient had a negative CAT scan of the chest. Minimal focal subsegmental atelectatic change was seen in the right posterior lung base. On today's evaluation of 02/04/2019, patient is essentially same compared to yesterday. Still bronchus spastic and wheezy. Still having cough and congested. No chest pain. No fever chills or night sweats. No other significant events otherwise over the past 24 hours. Based on her ongoing Lopressor wheezing, combination of Perforomist and Pulmicort will be added to optimize her COPD exacerbation. She remains on IV Solu-Medrol. She feels a bit swollen upper and lower extremities and for that reason she'll be given a dose of diuretics.. The patient is seen today 02/05/2019 in follow-up on the regular medical floor. She is awake and alert in no acute distress. Still with a dry nonproductive cough. Some dyspnea on exertion. Still somewhat bronchospastic and wheezing. He is maintaining good O2 saturations in the mid 90s on 2 L/m per nasal cannula. She is afebrile. She is continued on DuoNeb inhalations, Pulmicort and Perforomist inhalations, Tessalon Perles, IV Solu-Medrol. NicoDerm patch is in place. Objective - Vital Signs Vital signs: Vital Signs Temp 97.8 F 02/05/19 12:21 Pulse 81 02/05/19 12:21 Resp 15 02/05/19 12:21 BP 141/93 02/05/19 12:21 Pulse Ox 95 02/05/19 12:21 Intake & Output 02/04/19 02/05/19 02/05/19 18:59 06:59 18:59 Other: Voiding Method Toilet Toilet # Voids 1 2 - Exam General: Alert and oriented obese 48-year-old female patient. No distress, appears at stated age, obese Derm: no unusual rashes/lesions no unusual ecchymoses, warm, dry Head: atraumatic, normocephalic, symmetric Eyes: EOMI, no lid lag, anicteric sclera, pupils equal round reactive to light ENT: Nose and ears atraumatic, no thrush, no pharyngeal erythema Neck: No thyromegaly, no cervical lymphadenopathy, trachea midline, supple Mouth: no lip lesion, mucus membranes moist Cardiovascular: S1 S2 reg, no murmur, positive posterior tibial pulse bilateral, 1+ pam LE edema noted, capillary refill less than 2 seconds Lungs: Bilateral mild wheezing appreciated, no coarse breath sounds, no rales or ronchi, no accessory muscle use Abdominal: soft, nontender to palpation, no guarding, no appreciable organomegaly, normal bowel sounds Ext: no gross muscle atrophy, muscle strength 5 out of 5 in all 4 extremities grossly, no contractures, Neuro: CN II-XI grossly intact, light touch intact all 4 extremities, finger to nose within normal limits, Psych: Alert, oriented, appropriate affect - Labs CBC & Chem 7: 02/02/19 21:00 02/02/19 21:00 Labs: Abnormal Lab Results - Last 24 Hours (Table) 02/04/19 02/04/19 02/05/19 Range/Units 17:01 19:28 07:49 POC Glucose (mg/dL) 167 H 228 H 184 H (75-99) mg/dL 02/05/19 Range/Units 11:09 POC Glucose (mg/dL) 288 H (75-99) mg/dL Assessment and Plan Assessment: Impression: 1 acute COPD exacerbation with secondary shortness of breath 2 history of childhood asthma 3 history of smoking 4 alcoholism and the patient is currently undergoing alcohol rehabilitation 5 obesity 6 hypothyroidism 7 seizure disorder related to alcoholism/alcohol withdrawal seizures 8 hypertension 9 poor medical follow-up on outpatient basis Plan: The patient was seen and evaluated by Dr. Rouse. She is improved today compared to yesterday. Not quite back to her baseline. Continue current treatment plan. Increase her activity as tolerated. We'll continue to follow. I, the cosigning physician, performed a history & physical examination of the patient. Lungs sounds with bilateral end expiratory wheeze. Maintaining good O2 saturations in the 90s on 2 L/m per nasal cannula. I discussed the assessment and plan of care with my nurse practitioner, Mary Phillips. I attest to the above note as dictated by her.
--- NOTE | 2019-02-05 14:29 | P.PN ---
Subjective Progress Note Date: 02/05/19 Principal diagnosis: COPD exacerbation Patient was seen and examined. No acute events overnight. Patient reports no changes in her breathing. She continues to complain of cough that is intense causing bronchospasms. She denies any chest pain or palpitations. No nausea or vomiting. No fever or chills. Objective - Vital Signs Vital signs: Vital Signs Temp 97.8 F 02/05/19 12:21 Pulse 81 02/05/19 12:21 Resp 15 02/05/19 12:21 BP 141/93 02/05/19 12:21 Pulse Ox 95 02/05/19 12:21 Intake & Output 02/04/19 02/05/19 02/05/19 18:59 06:59 18:59 Other: Voiding Method Toilet Toilet Toilet # Voids 1 2 3 - Exam General: [non toxic], [no distress], [appears at stated age] Derm: [warm], [dry] Head: [atraumatic], [normocephalic], [symmetric] Eyes: [EOMI], [no lid lag], [anicteric sclera] Mouth: [no lip lesion], [mucus membranes moist] Cardiovascular: [S1S2 reg], [no murmur], [positive posterior tibial pulse bilate ral], Lungs: [End expiratory wheezing bilateral, improved from admission], [no rhonchi, no rales] , [no accessory muscle use] Abdominal: [soft], [ nontender to palpation], [no guarding], [no appreciable organomegaly] Ext: [no gross muscle atrophy], [no edema], [no contractures] Neuro: [no focal neuro deficits] Psych: [Alert], [oriented], [appropriate affect] - Labs CBC & Chem 7: 02/02/19 21:00 02/02/19 21:00 Labs: Abnormal Lab Results - Last 24 Hours (Table) 02/04/19 02/04/19 02/05/19 Range/Units 17:01 19:28 07:49 POC Glucose (mg/dL) 167 H 228 H 184 H (75-99) mg/dL 02/05/19 Range/Units 11:09 POC Glucose (mg/dL) 288 H (75-99) mg/dL Assessment and Plan Assessment: Acute COPD exacerbation likely secondary to viral bronchitis Steroid-induced hyperglycemia History of CHF Chronic conditions: Hypertension, hypothyroidism, seizure disorder CT of the chest unremarkable. Patient is afebrile with no leukocytosis. BNP is 26. Troponin is less than 0.012 with EKG showing normal sinus rhythm. Plans: DuoNeb 4 times a day scheduled and as needed for shortness of breath and wheezing. Patient started on Solu-Medrol. Tessalon Perles for cough. Promethazine with codeine for cough. We will follow pulmonology consultation. [id number] glucose 288. Plans: Insulin sliding scale. Regular Accu-Cheks. Hypoglycemic precautions. Patient does not seem to be in acute CHF exacerbation. BNP is within normal limits. Echocardiogram shows EF 55-60% with normal diastolic filling. Plans: Continue to monitor Patient is pending clinical improvement. Possible DC in 1-2 days, we will follow pulmonology recommendations.
[2019-02-05 17:08] LABS: Glucose,Whole Blood 207 mg/dL (75-99)
[2019-02-05 20:01] LABS: Glucose,Whole Blood 231 mg/dL (75-99)
[2019-02-05] MEDS: ATORVASTATIN 40 MG TAB PO SCH (21:47)
[2019-02-05] MEDS: traZODone HCL 50 MG TAB PO SCH (22:27)
[2019-02-06] MEDS: IPRATROPIUM-ALBUTEROL 3 ML NEB INHALATION PRN (04:15)
[2019-02-06] MEDS: busPIRone HCl 10 MG TAB PO PRN (04:44)
[2019-02-06] MEDS: BENZONATATE 100 MG CAP PO PRN ×3 (04:44→20:16)
[2019-02-06] MEDS: HYDROcodone/APAP 5-325MG 1 EACH TAB PO PRN ×2 (05:56→12:43)
[2019-02-06] MEDS: LEVOTHYROXINE 75 MCG TAB PO SCH (05:56)
[2019-02-06] MEDS: PROMETHAZ-COD 6.25-10 MG/5 ML 5 ML CUP PO PRN ×3 (05:57→19:08)
[2019-02-06 06:52] LABS: Glucose,Whole Blood 272 mg/dL (75-99)
[2019-02-06] MEDS: FORMOTEROL FUMARATE 20 MCG/2 ML NEBU INHALATION SCH ×2 (06:58→18:38)
[2019-02-06] MEDS: BUDESONIDE 1 MG/2 ML NEBU INHALATION SCH ×2 (06:58→18:38)
[2019-02-06] MEDS: IPRATROPIUM-ALBUTEROL 3 ML NEB INHALATION SCH ×4 (06:58→18:37)
[2019-02-06] MEDS: HEPARIN SODIUM,PORCINE 5,000 UNIT/ML 1 ML VIAL SQ SCH ×3 (07:32→23:28)
[2019-02-06] MEDS: CARVEDILOL 3.125 MG TAB PO SCH ×2 (07:32→16:56)
[2019-02-06] MEDS: INSULIN ASPART (NovoLOG) 100 UNIT/ML VIAL SQ SCH ×4 (07:32→20:16)
[2019-02-06] MEDS: IBUPROFEN 600 MG TAB PO PRN ×3 (07:37→23:29)
[2019-02-06] MEDS: FAMOTIDINE 20 MG TAB PO SCH ×2 (07:39→20:16)
[2019-02-06] MEDS: cloNIDine HCL 0.1 MG TAB PO SCH ×2 (07:39→20:16)
[2019-02-06] MEDS: levETIRAcetam 500 MG TAB PO SCH ×2 (07:40→20:16)
[2019-02-06] MEDS: methylPREDNISolone SOD SUCCI 125 MG/2 ML VIAL IV SCH ×3 (07:40→23:28)
[2019-02-06] MEDS: MONTELUKAST 10 MG TAB PO SCH (07:41)
[2019-02-06] MEDS: POTASSIUM CHLORIDE ER 20 MEQ TAB.ER PO SCH (07:42)
[2019-02-06] MEDS: OXcarbazepine 150 MG TAB PO SCH ×2 (07:42→20:16)
[2019-02-06] MEDS: NICOTINE 14MG/24HR PATCH TRANSDERM SCH (07:42)
[2019-02-06] MEDS: POLYETHYLENE GLYCOL 3350 17 GM POWD.PACK PO PRN (11:08)
[2019-02-06] MEDS: DOXYCYCLINE 100 MG CAP PO SCH ×2 (11:08→20:16)
--- NOTE | 2019-02-06 12:22 | P.PN ---
Subjective Progress Note Date: 02/06/19 Principal diagnosis: Acute exacerbation of COPD 48-year-old female patient with history of childhood asthma and COPD who is a chronic tobacco smoker in she is smoking approximately half to 1 pack of cigarette on a daily basis. The patient had been having increased dyspnea cough congestion and wheezing and for that reason she was brought into our hospital. She was recovering or she was in the [facility] program here locally in [place]. She is originally from the [facility]. She has had previous episodes of ventilator dependent respiratory failure and pneumonia and her respiratory failure was quite prolonged requiring intubation mechanical ventilation and tracheostomy tube insertion and these were related to previous complicated his of alcoholism and seizure activity and aspiration. She has a goiter. She does not use any form of maintenance as per medication. She has used inhaled corticosteroids in the past and currently she is admitted albuterol rescue i nhaler on an as-needed basis. No hemoptysis. No pleurisy. No chest pain. Cardiac enzymes are negative. BNP level is at 26. D-dimer is at low at 0.3. White cell count is not elevated and the patient's hemoglobin is at 10.4. A computed tomography scan of the chest was done and it showed no evidence of any significant abnormalities. The patient had a negative CAT scan of the chest. Minimal focal subsegmental atelectatic change was seen in the right posterior lung base. On today's evaluation of 02/04/2019, patient is essentially same compared to yesterday. Still bronchus spastic and wheezy. Still having cough and congested. No chest pain. No fever chills or night sweats. No other significant events otherwise over the past 24 hours. Based on her ongoing Lopressor wheezing, combination of Perforomist and Pulmicort will be added to optimize her COPD exacerbation. She remains on IV Solu-Medrol. She feels a bit swollen upper and lower extremities and for that reason she'll be given a dose of diuretics.. The patient is seen today 02/05/2019 in follow-up on the regular medical floor. She is awake and alert in no acute distress. Still with a dry nonproductive cough. Some dyspnea on exertion. Still somewhat bronchospastic and wheezing. He is maintaining good O2 saturations in the mid 90s on 2 L/m per nasal cannula. She is afebrile. She is continued on DuoNeb inhalations, Pulmicort and Perforomist inhalations, Tessalon Perles, IV Solu-Medrol. NicoDerm patch is in place. On 02/06/2019 patient seen in follow-up on regular medical floor. She still complains of frequent coughing spells, she states her chest hurts from frequent coughing, she is at times able to bring up small amounts of sputum. Lung sounds are very diminished, with end expiratory wheezes, her IV steroids have been decreased to 60 mg every 12 hours. No fever or chills. Vital signs are stable. Nasacort 2 L of oxygen and the pulse ox of 96%. She remains on a combination of nebulized bronchodilators, IV steroids, no antibiotics, Pulmicort and Perforomist, Singulair, cough syrup. Objective - Vital Signs Vital signs: Vital Signs Temp 97.6 F 02/06/19 05:00 Pulse 108 H 02/06/19 11:15 Resp 22 02/06/19 05:00 BP 119/74 02/06/19 05:00 Pulse Ox 96 02/06/19 05:00 Intake & Output 02/05/19 02/06/19 02/06/19 18:59 06:59 18:59 Intake Total 1740 Balance 1740 Weight 100.5 kg Intake: Oral 1740 Other: Voiding Method Toilet Toilet Toilet # Voids 3 3 - Exam GENERAL EXAM: Alert, pleasant, 40-year-old white female, with frequent bouts of coughing comfortable in no apparent distress. HEAD: Normocephalic/atraumatic. EYES: Normal reaction of pupils, equal size. Conjunctiva pink, sclera white. NOSE: Clear with pink turbinates. THROAT: No erythema or exudates. NECK: No masses, no JVD, no thyroid enlargement, no adenopathy. CHEST: No chest wall deformity. Symmetrical expansion. LUNGS: Equal air entry with diminished sounds with the expiratory wheezes CVS: Regular rate and rhythm, normal S1 and S2, no gallops, no murmurs, no rubs ABDOMEN: Soft, nontender. No hepatosplenomegaly, normal bowel sounds, no guarding or rigidity. EXTREMITIES: No clubbing, no edema, no cyanosis, 2+ pulses and upper and lower extremities. MUSCULOSKELETAL: Muscle strength and tone normal. SPINE: No scoliosis or deformity SKIN: No rashes CENTRAL NERVOUS SYSTEM: Alert and oriented -3. No focal deficits, tone is normal in all 4 extremities. PSYCHIATRIC: Alert and oriented -3. Appropriate affect. Intact judgment and insight. - Labs CBC & Chem 7: 02/02/19 21:00 02/02/19 21:00 Labs: Abnormal Lab Results - Last 24 Hours (Table) 02/05/19 02/05/19 02/06/19 Range/Units 17:07 20:00 06:50 POC Glucose (mg/dL) 207 H 231 H 272 H (75-99) mg/dL Assessment and Plan Plan: 1 acute COPD exacerbation with secondary shortness of breath 2 history of childhood asthma 3 history of smoking 4 alcoholism and the patient is currently undergoing alcohol rehabilitation 5 obesity 6 hypothyroidism 7 seizure disorder related to alcoholism/alcohol withdrawal seizures 8 hypertension 9 poor medical follow-up on outpatient basis Plan: We'll continue with current medical treatment, cough syrup, nebulized bronchodilators, we'll decrease IV Solu-Medrol to 60 every 8 hours, we'll add doxycycline, and cough syrup. Patient still remains bronchospastic, dyspneic, with frequent bouts of coughing. Continue to follow, I performed a history & physical examination of the patient and discussed their management with my nurse practitioner, Rosana Watt. I reviewed the nurse practitioner's note and agree with the documented findings and plan of care. Lung sounds are positive for diffuse wheezes throughout the lung chawla. The findings and the impression was discussed with the patient. I attest to the documentation by the nurse practitioner. Time with Patient: Less than 30
[2019-02-06 12:31] LABS: Glucose,Whole Blood 264 mg/dL (75-99)
[2019-02-06] MEDS: busPIRone HCl 10 MG TAB PO SCH ×3 (13:10→20:15)
--- NOTE | 2019-02-06 13:24 | P.PN ---
Subjective Progress Note Date: 02/06/19 Principal diagnosis: COPD exacerbation Patient was seen and examined. No acute events overnight. Patient reports no changes in her breathing. Continues to complain of cough. She denies any chest pain or palpitations. No nausea or vomiting. No fever or chills. Objective - Vital Signs Vital signs: Vital Signs Temp 97.6 F 02/06/19 05:00 Pulse 108 H 02/06/19 11:15 Resp 22 02/06/19 05:00 BP 119/74 02/06/19 05:00 Pulse Ox 96 02/06/19 05:00 Intake & Output 02/05/19 02/06/19 02/06/19 18:59 06:59 18:59 Intake Total 1740 Balance 1740 Weight 100.5 kg Intake: Oral 1740 Other: Voiding Method Toilet Toilet Toilet # Voids 3 3 - Exam General: [non toxic], [no distress], [appears at stated age] Derm: [warm], [dry] Head: [atraumatic], [normocephalic], [symmetric] Eyes: [EOMI], [no lid lag], [anicteric sclera] Mouth: [no lip lesion], [mucus membranes moist] Cardiovascular: [S1S2 reg], [no murmur], [positive posterior tibial pulse bilateral], Lungs: [End expiratory wheezing bilateral, improved from admission], [no rhonchi, no rales] , [no accessory muscle use] Abdominal: [soft], [ nontender to palpation], [no guarding], [no appreciable organomegaly] Ext: [no gross muscle atrophy], [no edema], [no contractures] Neuro: [no focal neuro deficits] Psych: [Alert], [oriented], [appropriate affect] - Labs CBC & Chem 7: 02/02/19 21:00 02/02/19 21:00 Labs: Abnormal Lab Results - Last 24 Hours (Table) 02/05/19 02/05/19 02/06/19 Range/Units 17:07 20:00 06:50 POC Glucose (mg/dL) 207 H 231 H 272 H (75-99) mg/dL 02/06/19 Range/Units 12:31 POC Glucose (mg/dL) 264 H (75-99) mg/dL Assessment and Plan Assessment: Acute COPD exacerbation likely secondary to viral bronchitis Steroid-induced hyperglycemia History of CHF Chronic conditions: Hypertension, hypothyroidism, seizure disorder CT of the chest unremarkable. Patient is afebrile with no leukocytosis. BNP is 26. Troponin is less than 0.012 with EKG showing normal sinus rhythm. Plans: DuoNeb 4 times a day scheduled and as needed for shortness of breath and wheezing. Patient started on Solu-Medrol. Tessalon Perles for cough. Promethazine with codeine for cough. We will follow pulmonology consultation. [id number] glucose 264. Plans: Insulin sliding scale. Regular Accu-Cheks. Hypoglycemic precautions. Patient does not seem to be in acute CHF exacerbation. BNP is within normal limits. Echocardiogram shows EF 55-60% with normal diastolic filling. Plans: Continue to monitor Patient is pending clinical improvement for COPD exacerbation. Possible DC in 1-2 days, we will follow pulmonology recommendations.
[2019-02-06 16:47] LABS: Glucose,Whole Blood 292 mg/dL (75-99)
[2019-02-06] MEDS: HYDROcodone/APAP 10-325MG 1 EACH TAB PO PRN (19:08)
[2019-02-06 19:58] LABS: Glucose,Whole Blood 217 mg/dL (75-99)
[2019-02-06] MEDS: ATORVASTATIN 40 MG TAB PO SCH (20:15)
[2019-02-06] MEDS: traZODone HCL 50 MG TAB PO SCH (20:16)
[2019-02-07] MEDS: PROMETHAZ-COD 6.25-10 MG/5 ML 5 ML CUP PO PRN ×4 (01:34→21:10)
[2019-02-07] MEDS: HYDROcodone/APAP 10-325MG 1 EACH TAB PO PRN ×4 (01:35→21:09)
[2019-02-07] MEDS: IBUPROFEN 600 MG TAB PO PRN ×4 (05:37→23:31)
[2019-02-07] MEDS: BENZONATATE 100 MG CAP PO PRN ×2 (05:46→17:27)
[2019-02-07 06:48] LABS: Glucose,Whole Blood 209 mg/dL (75-99)
[2019-02-07] MEDS: INSULIN ASPART (NovoLOG) 100 UNIT/ML VIAL SQ SCH ×4 (06:51→20:41)
[2019-02-07] MEDS: CARVEDILOL 3.125 MG TAB PO SCH ×2 (07:06→17:27)
[2019-02-07] MEDS: LEVOTHYROXINE 75 MCG TAB PO SCH (07:06)
[2019-02-07] MEDS: FORMOTEROL FUMARATE 20 MCG/2 ML NEBU INHALATION SCH ×2 (08:15→21:01)
[2019-02-07] MEDS: BUDESONIDE 1 MG/2 ML NEBU INHALATION SCH ×2 (08:15→21:01)
[2019-02-07] MEDS: IPRATROPIUM-ALBUTEROL 3 ML NEB INHALATION SCH ×4 (08:16→21:01)
[2019-02-07] MEDS: methylPREDNISolone SOD SUCCI 125 MG/2 ML VIAL IV SCH ×3 (09:14→23:31)
[2019-02-07] MEDS: HEPARIN SODIUM,PORCINE 5,000 UNIT/ML 1 ML VIAL SQ SCH ×3 (09:14→23:31)
[2019-02-07] MEDS: NICOTINE 14MG/24HR PATCH TRANSDERM SCH (09:15)
[2019-02-07] MEDS: cloNIDine HCL 0.1 MG TAB PO SCH ×2 (09:16→20:44)
[2019-02-07] MEDS: busPIRone HCl 10 MG TAB PO SCH ×3 (09:16→21:49)
[2019-02-07] MEDS: DOXYCYCLINE 100 MG CAP PO SCH ×2 (09:16→20:44)
[2019-02-07] MEDS: FAMOTIDINE 20 MG TAB PO SCH ×2 (09:17→20:44)
[2019-02-07] MEDS: POTASSIUM CHLORIDE ER 20 MEQ TAB.ER PO SCH (09:17)
[2019-02-07] MEDS: OXcarbazepine 150 MG TAB PO SCH ×2 (09:18→20:46)
[2019-02-07] MEDS: MONTELUKAST 10 MG TAB PO SCH (09:18)
[2019-02-07] MEDS: levETIRAcetam 500 MG TAB PO SCH (09:35)
--- NOTE | 2019-02-07 12:09 | P.PN ---
Subjective Progress Note Date: 02/07/19 Principal diagnosis: Acute exacerbation of COPD 48-year-old female patient with history of childhood asthma and COPD who is a chronic tobacco smoker in she is smoking approximately half to 1 pack of cigarette on a daily basis. The patient had been having increased dyspnea cough congestion and wheezing and for that reason she was brought into our hospital. She was recovering or she was in the [facility] re[facility] program here locally in [place]. She is originally from the [facility]. She has had previous episodes of ventilator dependent respiratory failure and pneumonia and her respiratory failure was quite prolonged requiring intubation mechanical ventilation and tracheostomy tube insertion and these were related to previous complicated his of alcoholism and seizure activity and aspiration. She has a goiter. She does not use any form of maintenance as per medication. She has used inhaled corticosteroids in the past and currently she is admitted albuterol rescue i nhaler on an as-needed basis. No hemoptysis. No pleurisy. No chest pain. Cardiac enzymes are negative. BNP level is at 26. D-dimer is at low at 0.3. White cell count is not elevated and the patient's hemoglobin is at 10.4. A computed tomography scan of the chest was done and it showed no evidence of any significant abnormalities. The patient had a negative CAT scan of the chest. Minimal focal subsegmental atelectatic change was seen in the right posterior lung base. On today's evaluation of 02/04/2019, patient is essentially same compared to yesterday. Still bronchus spastic and wheezy. Still having cough and congested. No chest pain. No fever chills or night sweats. No other significant events otherwise over the past 24 hours. Based on her ongoing Lopressor wheezing, combination of Perforomist and Pulmicort will be added to optimize her COPD exacerbation. She remains on IV Solu-Medrol. She feels a bit swollen upper and lower extremities and for that reason she'll be given a dose of diuretics.. The patient is seen today 02/05/2019 in follow-up on the regular medical floor. She is awake and alert in no acute distress. Still with a dry nonproductive cough. Some dyspnea on exertion. Still somewhat bronchospastic and wheezing. He is maintaining good O2 saturations in the mid 90s on 2 L/m per nasal cannula. She is afebrile. She is continued on DuoNeb inhalations, Pulmicort and Perforomist inhalations, Tessalon Perles, IV Solu-Medrol. NicoDerm patch is in place. On 02/06/2019 patient seen in follow-up on regular medical floor. She still complains of frequent coughing spells, she states her chest hurts from frequent coughing, she is at times able to bring up small amounts of sputum. Lung sounds are very diminished, with end expiratory wheezes, her IV steroids have been decreased to 60 mg every 12 hours. No fever or chills. Vital signs are stable. Nasacort 2 L of oxygen and the pulse ox of 96%. She remains on a combination of nebulized bronchodilators, IV steroids, no antibiotics, Pulmicort and Perforomist, Singulair, cough syrup. On 02/07/2019 patient seen in follow-up on medical surgical floor. Still quite congested, bronchospastic, the cough has slightly improved, still coughing quite a bit. Lung sounds are positive for diffuse rhonchi and wheezes. Cough is loose on today's exam, and patient occasionally brings up small amounts of phlegm. No fever or chills, room air pulse ox is 97%, she is on commission of doxycycline, IV Solu-Medrol, nebulized broncho-dilators, Pulmicort and Perforomist. Objective - Vital Signs Vital signs: Vital Signs Temp 97.7 F 02/07/19 09:00 Pulse 79 02/07/19 11:55 Resp 36 H 02/07/19 09:00 BP 124/80 02/07/19 09:00 Pulse Ox 97 02/07/19 09:00 Intake & Output 02/06/19 02/07/19 02/07/19 18:59 06:59 18:59 Intake Total 1999 Balance 1999 Intake: Oral 1999 Other: Voiding Method Toilet # Voids 4 1 - Exam GENERAL EXAM: Alert, pleasant, 40-year-old white female, with frequent bouts of coughing comfortable in no apparent distress. HEAD: Normocephalic/atraumatic. EYES: Normal reaction of pupils, equal size. Conjunctiva pink, sclera white. NOSE: Clear with pink turbinates. THROAT: No erythema or exudates. NECK: No masses, no JVD, no thyroid enlargement, no adenopathy. CHEST: No chest wall deformity. Symmetrical expansion. LUNGS: Equal air entry with diffuse rhonchi and wheezes CVS: Regular rate and rhythm, normal S1 and S2, no gallops, no murmurs, no rubs ABDOMEN: Soft, nontender. No hepatosplenomegaly, normal bowel sounds, no guarding or rigidity. EXTREMITIES: No clubbing, no edema, no cyanosis, 2+ pulses and upper and lower extremities. MUSCULOSKELETAL: Muscle strength and tone normal. SPINE: No scoliosis or deformity SKIN: No rashes CENTRAL NERVOUS SYSTEM: Alert and oriented -3. No focal deficits, tone is norm al in all 4 extremities. PSYCHIATRIC: Alert and oriented -3. Appropriate affect. Intact judgment and insight. - Labs CBC & Chem 7: 02/02/19 21:00 02/02/19 21:00 Labs: Abnormal Lab Results - Last 24 Hours (Table) 02/06/19 02/06/19 02/06/19 Range/Units 12:31 16:46 19:56 POC Glucose (mg/dL) 264 H 292 H 217 H (75-99) mg/dL 02/07/19 Range/Units 06:39 POC Glucose (mg/dL) 209 H (75-99) mg/dL Assessment and Plan Plan: 1 acute COPD exacerbation with secondary shortness of breath 2 history of childhood asthma 3 history of smoking 4 alcoholism and the patient is currently undergoing alcohol rehabilitation 5 obesity 6 hypothyroidism 7 seizure disorder related to alcoholism/alcohol withdrawal seizures 8 hypertension 9 poor medical follow-up on outpatient basis Plan: Continue current plan of treatment, IV Solu-Medrol to 60 every 6 hours, doxy cycline, send sputum culture, continue cough syrup, nicotine patch, Singulair. Afebrile. Still quite congested, and bronchospastic. Will continue to follow I performed a history & physical examination of the patient and discussed their management with my nurse practitioner, Rosana Watt. I reviewed the nurse practitioner's note and agree with the documented findings and plan of care. Lung sounds are positive for diffuse wheezes throughout the lung chawla. The findings and the impression was discussed with the patient. I attest to the documentation by the nurse practitioner. Time with Patient: Less than 30
--- NOTE | 2019-02-07 12:20 | P.PN ---
Subjective Progress Note Date: 02/07/19 Patient seen and examined at bedside up and awake still complain of shortness of breath, had poor sleep overnight, complaining of congestion, reports compliant with ISS was still having frequent paroxysms of cough, no fevers overnight, no acute events overnight Objective - Vital Signs Vital signs: Vital Signs Temp 97.7 F 02/07/19 09:00 Pulse 82 02/07/19 12:05 Resp 36 H 02/07/19 09:00 BP 124/80 02/07/19 09:00 Pulse Ox 97 02/07/19 09:00 Intake & Output 02/06/19 02/07/19 02/07/19 18:59 06:59 18:59 Intake Total 1999 Balance 1999 Intake: Oral 1999 Other: Voiding Method Toilet # Voids 4 1 - Exam Constitutional: Conversational dyspnea, appears flushed Eyes: Anicteric sclerae, moist conjunctiva, no lid-lag, PERRLA ENMT: NC/AT,Oropharynx clear, no erythema, exudates Neck:Supple, FROM, no masses, or JVD, No carotid bruits; No thyromegaly Lungs: Diminished in the bases with diffuse expiratory wheezes with noted conversational dyspnea 2 word on 2 L nasal cannula Cardiovascular: Heart regular in rate and rhythm, No murmurs, gallops, or rubs no peripheral edema Abdominal: Soft Nontender, nom distended, no guarding, no rebound or rigidity, Normoactive bowel sounds No hepatomegaly, No splenomegaly, No palpable mass No abdominal wall hernia noted Skin: Normal temperature, tone, texture, turgor, No induration No subcutaneous nodules, No rash, lesions, No ulcers Extremities:No digital cyanosis No clubbing, Pedal pulses intact and symmetrical Radial pulses intact and symmetrical Normal gait and station, No calf tenderness Psychiatric: Alert and oriented to person, place and time, Appropriate affect Intact judgement Neuro: Muscles Strength 5/5 in all 4 extremities, Sensation to light touch grossly present throughout, Cranial nerves II-XII grossly intact. No focal sensory deficits - Labs CBC & Chem 7: 02/02/19 21:00 02/02/19 21:00 Labs: Abnormal Lab Results - Last 24 Hours (Table) 02/06/19 02/06/19 02/06/19 Range/Units 12:31 16:46 19:56 POC Glucose (mg/dL) 264 H 292 H 217 H (75-99) mg/dL 02/07/19 Range/Units 06:39 POC Glucose (mg/dL) 209 H (75-99) mg/dL Assessment and Plan (1) Acute exacerbation of COPD with asthma Narrative/Plan: * CT of the chest unremarkable. Patient is afebrile with no leukocytosis. BNP is 26. Troponin is less than 0.012 with EKG showing normal sinus rhythm. * Plans: DuoNeb 4 times a day scheduled and as needed for shortness of breath and wheezing. * Patient continued on Solu-Medrol, Perforomist, Tessalon Perles for cough. Promethazine with codeine for cough. * Appreciate pulmonary recommendations. Current Visit: Yes Status: Acute Code(s): J44.1 - CHRONIC OBSTRUCTIVE PULMONARY DISEASE W (ACUTE) EXACERBATION; J45.901 - UNSPECIFIED ASTHMA WITH (ACUTE) EXACERBATION SNOMED Code(s): 9226945207584 (2) Steroid-induced hyperglycemia Narrative/Plan: * Blood sugars elevated 207 - 292 * Continue correctional scale insulin coverage Current Visit: Yes Status: Acute Code(s): R73.9 - HYPERGLYCEMIA, UNSPECIFIED; T38.0X5A - ADVERSE EFFECT OF GLUCOCORT/SYNTH ANALOG, INIT SNOMED Code(s): 555540556 (3) Essential hypertension Narrative/Plan: * Blood pressure stable controlled on current regimen * Continue to monitor Current Visit: Yes Status: Acute Code(s): I10 - ESSENTIAL (PRIMARY) HYPERTENSION SNOMED Code(s): 56555962 (4) Hypothyroidism Narrative/Plan: * Continue current Synthroid regimen Current Visit: Yes Status: Acute Code(s): E03.9 - HYPOTHYROIDISM, UNSPECIFIED SNOMED Code(s): 79714379 Plan: * Continue current treatment plan * Anticipated discharge 2-5 days
[2019-02-07 12:42] LABS: Glucose,Whole Blood 187 mg/dL (75-99)
[2019-02-07] MEDS: POLYETHYLENE GLYCOL 3350 17 GM POWD.PACK PO PRN (15:04)
[2019-02-07 18:12] LABS: Glucose,Whole Blood 167 mg/dL (75-99)
[2019-02-07 20:26] LABS: Glucose,Whole Blood 232 mg/dL (75-99)
[2019-02-07] MEDS: ATORVASTATIN 40 MG TAB PO SCH (20:43)
[2019-02-07] MEDS: levETIRAcetam 250 MG TAB PO SCH (20:45)
[2019-02-07] MEDS: traZODone HCL 50 MG TAB PO SCH (21:49)
[2019-02-08] MEDS: BENZONATATE 100 MG CAP PO PRN (01:28)
[2019-02-08] MEDS: PROMETHAZ-COD 6.25-10 MG/5 ML 5 ML CUP PO PRN ×2 (03:28→09:36)
[2019-02-08] MEDS: HYDROcodone/APAP 10-325MG 1 EACH TAB PO PRN ×4 (03:28→21:54)
[2019-02-08] MEDS: IBUPROFEN 600 MG TAB PO PRN ×3 (06:07→17:38)
[2019-02-08] MEDS: LEVOTHYROXINE 75 MCG TAB PO SCH (06:08)
[2019-02-08] MEDS: IPRATROPIUM-ALBUTEROL 3 ML NEB INHALATION PRN (06:14)
[2019-02-08] MEDS: methylPREDNISolone SOD SUCCI 125 MG/2 ML VIAL IV SCH ×4 (06:14→23:53)
[2019-02-08 06:15] LABS: Glucose,Whole Blood 262 mg/dL (75-99)
[2019-02-08] MEDS: INSULIN ASPART (NovoLOG) 100 UNIT/ML VIAL SQ SCH ×4 (06:22→20:21)
[2019-02-08] MEDS: FORMOTEROL FUMARATE 20 MCG/2 ML NEBU INHALATION SCH ×2 (07:52→20:46)
[2019-02-08] MEDS: BUDESONIDE 1 MG/2 ML NEBU INHALATION SCH ×2 (07:52→20:46)
[2019-02-08] MEDS: IPRATROPIUM-ALBUTEROL 3 ML NEB INHALATION SCH ×4 (07:52→20:46)
[2019-02-08] MEDS: NICOTINE 14MG/24HR PATCH TRANSDERM SCH (09:31)
[2019-02-08] MEDS: busPIRone HCl 10 MG TAB PO SCH ×3 (09:32→21:54)
[2019-02-08] MEDS: CARVEDILOL 3.125 MG TAB PO SCH ×2 (09:33→17:39)
[2019-02-08] MEDS: POTASSIUM CHLORIDE ER 20 MEQ TAB.ER PO SCH (09:33)
[2019-02-08] MEDS: levETIRAcetam 250 MG TAB PO SCH ×2 (09:33→20:23)
[2019-02-08] MEDS: OXcarbazepine 150 MG TAB PO SCH ×2 (09:34→20:24)
[2019-02-08] MEDS: FAMOTIDINE 20 MG TAB PO SCH ×2 (09:34→20:23)
[2019-02-08] MEDS: MONTELUKAST 10 MG TAB PO SCH (09:35)
[2019-02-08] MEDS: BENZONATATE 100 MG CAP PO SCH ×4 (09:35→21:55)
[2019-02-08] MEDS: cloNIDine HCL 0.1 MG TAB PO SCH ×2 (09:35→20:23)
[2019-02-08] MEDS: DOXYCYCLINE 100 MG CAP PO SCH ×2 (09:36→20:23)
[2019-02-08] MEDS: HEPARIN SODIUM,PORCINE 5,000 UNIT/ML 1 ML VIAL SQ SCH ×3 (09:36→23:53)
[2019-02-08 11:26] LABS: Glucose,Whole Blood 243 mg/dL (75-99)
--- NOTE | 2019-02-08 12:17 | P.PN ---
Subjective Progress Note Date: 02/08/19 Patient seen and examined at bedside, still complain of shortness of air and paroxysmal cough that seems to be worse in the morning with some minimal sputum production. Recently had a breathing treatments, working with incentive spirometry only achieving approximately 1000 mL. Acceptable oxygen saturations on 2 L nasal cannula Objective - Vital Signs Vital signs: Vital Signs Temp 97.9 F 02/08/19 08:51 Pulse 88 02/08/19 12:09 Resp 18 02/08/19 12:09 BP 138/89 02/08/19 04:17 Pulse Ox 94 L 02/08/19 08:51 Intake & Output 02/07/19 02/08/19 02/08/19 18:59 06:59 18:59 Intake Total 2500 Balance 2500 Intake: Oral 2500 Other: Voiding Method Toilet # Voids 2 3 - Exam Constitutional: Conversational dyspnea, appears flushed Eyes: Anicteric sclerae, moist conjunctiva, no lid-lag, PERRLA ENMT: NC/AT,Oropharynx clear, no erythema, exudates Neck:Supple, FROM, no masses, or JVD, No carotid bruits; No thyromegaly Lungs: Diminished in the bases with diffuse expiratory wheezes with noted conversational dyspnea 2 word on 2 L nasal cannula, bronchospastic, coarse upper airway sounds Cardiovascular: Heart regular in rate and rhythm, No murmurs, gallops, or rubs no peripheral edema Abdominal: Soft Nontender, nom distended, no guarding, no rebound or rigidity, Normoactive bowel sounds No hepatomegaly, No splenomegaly, No palpable mass No abdominal wall hernia noted Skin: Normal temperature, tone, texture, turgor, No induration No subcutaneous nodules, No rash, lesions, No ulcers Extremities:No digital cyanosis No clubbing, Pedal pulses intact and symmetrical Radial pulses intact and symmetrical Normal gait and station, No c longterm tenderness Psychiatric: Alert and oriented to person, place and time, Appropriate affect Intact judgement Neuro: Muscles Strength 5/5 in all 4 extremities, Sensation to light touch grossly present throughout, Cranial nerves II-XII grossly intact. No focal sensory deficits - Labs CBC & Chem 7: 02/02/19 21:00 02/02/19 21:00 Labs: Abnormal Lab Results - Last 24 Hours (Table) 02/07/19 02/07/19 02/07/19 Range/Units 12:35 18:10 20:24 POC Glucose (mg/dL) 187 H 167 H 232 H (75-99) mg/dL 02/08/19 02/08/19 Range/Units 06:13 11:24 POC Glucose (mg/dL) 262 H 243 H (75-99) mg/dL Assessment and Plan (1) Acute exacerbation of COPD with asthma Narrative/Plan: * CT of the chest unremarkable. Patient is afebrile with no leukocytosis. BNP is 26. Troponin is less than 0.012 with EKG showing normal sinus rhythm. * Plans: DuoNeb 4 times a day scheduled and as needed for shortness of breath and wheezing. * Patient continued on Solu-Medrol, Perforomist, Tessalon Perles for cough. Promethazine with codeine for cough. * Appreciate pulmonary recommendations. * We'll check a viral panel today Current Visit: Yes Status: Acute Code(s): J44.1 - CHRONIC OBSTRUCTIVE PULMONARY DISEASE W (ACUTE) EXACERBATION; J45.901 - UNSPECIFIED ASTHMA WITH (ACUTE) EXACERBATION SNOMED Code(s): 4907052010199 (2) Steroid-induced hyperglycemia Narrative/Plan: * Blood sugars elevated 207 - 292 * Continue correctional scale insulin coverage Current Visit: Yes Status: Acute Code(s): R73.9 - HYPERGLYCEMIA, UNSPECIFIED; T38.0X5A - ADVERSE EFFECT OF GLUCOCORT/SYNTH ANALOG, INIT SNOMED Code(s): 055596184 (3) Essential hypertension Narrative/Plan: * Blood pressure stable controlled on current regimen * Continue to monitor Current Visit: Yes Status: Chronic Code(s): I10 - ESSENTIAL (PRIMARY) HYPERTENSION SNOMED Code(s): 75553770 (4) Hypothyroidism Narrative/Plan: * Continue current Synthroid regimen Current Visit: Yes Status: Chronic Code(s): E03.9 - HYPOTHYROIDISM, UNSPECIFIED SNOMED Code(s): 90409517 Plan: * Continue current treatment plan * Anticipated discharge 2-5 days
[2019-02-08] MEDS: POLYETHYLENE GLYCOL 3350 17 GM POWD.PACK PO PRN (12:26)
[2019-02-08] MEDS: BENZOCAINE/MENTHOL LOZENG 1 EACH LOZENGE MUCOUS MEM PRN ×3 (12:41→23:53)
--- NOTE | 2019-02-08 13:29 | P.PN ---
Subjective Progress Note Date: 02/08/19 Principal diagnosis: Acute exacerbation of COPD 48-year-old female patient with history of childhood asthma and COPD who is a chronic tobacco smoker in she is smoking approximately half to 1 pack of cigarette on a daily basis. The patient had been having increased dyspnea cough congestion and wheezing and for that reason she was brought into our hospital. She was recovering or she was in the [facility] program here locally in [place]. She is originally from the [facility] She has had previous episodes of ventilator dependent respiratory failure and pneumonia and her respiratory failure was quite prolonged requiring intubation mechanical ventilation and tracheostomy tube insertion and these were related to previous complicated his of alcoholism and seizure activity and aspiration. She has a goiter. She does not use any form of maintenance as per medication. She has used inhaled corticosteroids in the past and currently she is admitted albuterol rescue i nhaler on an as-needed basis. No hemoptysis. No pleurisy. No chest pain. Cardiac enzymes are negative. BNP level is at 26. D-dimer is at low at 0.3. White cell count is not elevated and the patient's hemoglobin is at 10.4. A computed tomography scan of the chest was done and it showed no evidence of any significant abnormalities. The patient had a negative CAT scan of the chest. Minimal focal subsegmental atelectatic change was seen in the right posterior lung base. On today's evaluation of 02/04/2019, patient is essentially same compared to yesterday. Still bronchus spastic and wheezy. Still having cough and congested. No chest pain. No fever chills or night sweats. No other significant events otherwise over the past 24 hours. Based on her ongoing Lopressor wheezing, combination of Perforomist and Pulmicort will be added to optimize her COPD exacerbation. She remains on IV Solu-Medrol. She feels a bit swollen upper and lower extremities and for that reason she'll be given a dose of diuretics.. The patient is seen today 02/05/2019 in follow-up on the regular medical floor. She is awake and alert in no acute distress. Still with a dry nonproductive cough. Some dyspnea on exertion. Still somewhat bronchospastic and wheezing. He is maintaining good O2 saturations in the mid 90s on 2 L/m per nasal cannula. She is afebrile. She is continued on DuoNeb inhalations, Pulmicort and Perforomist inhalations, Tessalon Perles, IV Solu-Medrol. NicoDerm patch is in place. On 02/06/2019 patient seen in follow-up on regular medical floor. She still complains of frequent coughing spells, she states her chest hurts from frequent coughing, she is at times able to bring up small amounts of sputum. Lung sounds are very diminished, with end expiratory wheezes, her IV steroids have been decreased to 60 mg every 12 hours. No fever or chills. Vital signs are stable. Nasacort 2 L of oxygen and the pulse ox of 96%. She remains on a combination of nebulized bronchodilators, IV steroids, no antibiotics, Pulmicort and Perforomist, Singulair, cough syrup. On 02/07/2019 patient seen in follow-up on medical surgical floor. Still quite congested, bronchospastic, the cough has slightly improved, still coughing quite a bit. Lung sounds are positive for diffuse rhonchi and wheezes. Cough is loose on today's exam, and patient occasionally brings up small amounts of phlegm. No fever or chills, room air pulse ox is 97%, she is on commission of doxycycline, IV Solu-Medrol, nebulized broncho-dilators, Pulmicort and Perforomist. On 02/08/2017 patient seen in follow-up on the surgical floor. She is up in bed, breathing easier, however she still has intermittent episodes of cough, which is slightly improved, patient did develop a sore throat, and throat i rritation with some difficulty swallowing possibly from coughing. No stridor. Currently on 2 L of oxygen the pulse ox of 96%, she is afebrile, sounds reveal less bronchospastic breath sounds. She continues on IV steroids, nebulized dilators, Pulmicort and Perforomist, she is on Tessalon Perles, and Phenergan with codeine. Objective - Vital Signs Vital signs: Vital Signs Temp 97.5 F L 02/08/19 12:12 Pulse 82 02/08/19 12:12 Resp 28 H 02/08/19 12:12 BP 154/97 02/08/19 12:12 Pulse Ox 96 02/08/19 12:12 Intake & Output 02/07/19 02/08/19 02/08/19 18:59 06:59 18:59 Intake Total 2500 Balance 2500 Intake: Oral 2500 Other: Voiding Method Toilet # Voids 2 3 - Exam GENERAL EXAM: Alert, pleasant, 40-year-old white female, with frequent bouts of coughing comfortable in no apparent distress. HEAD: Normocephalic/atraumatic. EYES: Normal reaction of pupils, equal size. Conjunctiva pink, sclera white. NOSE: Clear with pink turbinates. THROAT: No erythema or exudates. NECK: No masses, no JVD, no thyroid enlargement, no adenopathy. CHEST: No chest wall deformity. Symmetrical expansion. LUNGS: Equal air entry with a few scattered rhonchi, less bronchospastic on today's exam CVS: Regular rate and rhythm, normal S1 and S2, no gallops, no murmurs, no rubs ABDOMEN: Soft, nontender. No hepatosplenomegaly, normal bowel sounds, no gu arding or rigidity. EXTREMITIES: No clubbing, no edema, no cyanosis, 2+ pulses and upper and lower e xtremities. MUSCULOSKELETAL: Muscle strength and tone normal. SPINE: No scoliosis or deformity SKIN: No rashes CENTRAL NERVOUS SYSTEM: Alert and oriented -3. No focal deficits, tone is normal in all 4 extremities. PSYCHIATRIC: Alert and oriented -3. Appropriate affect. Intact judgment and insight. - Labs CBC & Chem 7: 02/02/19 21:00 02/02/19 21:00 Labs: Abnormal Lab Results - Last 24 Hours (Table) 02/07/19 02/07/19 02/08/19 Range/Units 18:10 20:24 06:13 POC Glucose (mg/dL) 167 H 232 H 262 H (75-99) mg/dL 02/08/19 Range/Units 11:24 POC Glucose (mg/dL) 243 H (75-99) mg/dL Assessment and Plan Plan: 1 acute COPD exacerbation with secondary shortness of breath 2 history of childhood asthma 3 history of smoking 4 alcoholism and the patient is currently undergoing alcohol rehabilitation 5 obesity 6 hypothyroidism 7 seizure disorder related to alcoholism/alcohol withdrawal seizures 8 hypertension 9 poor medical follow-up on outpatient basis Plan: Continue current medical treatment, continue with IV steroids, nebulized bronchodilators, Pulmicort, Perforomist, antibiotics, Tessalon Perles, and Phenergan with codeine on a scheduled basis, patient does have a sore throat related to intermittent episodes of irritating cough, but no stridor, provided some oral lozenges, we'll continue to follow. I performed a history & physical examination of the patient and discussed their management with my nurse practitioner, Rosana Watt. I reviewed the nurse practitioner's note and agree with the documented findings and plan of care. Lung sounds are positive for diffuse wheezes throughout the lung chawla. The findings and the impression was discussed with the patient. I attest to the documentation by the nurse practitioner. Time with Patient: Less than 30
[2019-02-08] MEDS: PROMETHAZ-COD 6.25-10 MG/5 ML 5 ML CUP PO SCH ×2 (15:25→20:25)
[2019-02-08 17:25] LABS: Glucose,Whole Blood 280 mg/dL (75-99)
[2019-02-08] MEDS: ONDANSETRON 4 MG/2 ML VIAL IVP PRN (19:25)
[2019-02-08 20:07] LABS: Glucose,Whole Blood 299 mg/dL (75-99)
[2019-02-08] MEDS: ATORVASTATIN 40 MG TAB PO SCH (20:22)
[2019-02-08] MEDS: traZODone HCL 50 MG TAB PO SCH (21:54)
[2019-02-09] MEDS: PROMETHAZ-COD 6.25-10 MG/5 ML 5 ML CUP PO SCH ×4 (03:37→20:46)
[2019-02-09] MEDS: HYDROcodone/APAP 10-325MG 1 EACH TAB PO PRN ×3 (03:38→23:46)
[2019-02-09 06:22] LABS: Glucose,Whole Blood 278 mg/dL (75-99)
[2019-02-09] MEDS: methylPREDNISolone SOD SUCCI 125 MG/2 ML VIAL IV SCH ×4 (06:24→23:46)
[2019-02-09] MEDS: LEVOTHYROXINE 75 MCG TAB PO SCH (06:24)
[2019-02-09] MEDS: INSULIN ASPART (NovoLOG) 100 UNIT/ML VIAL SQ SCH ×4 (06:34→20:43)
[2019-02-09] MEDS: CARVEDILOL 3.125 MG TAB PO SCH ×2 (09:02→18:37)
[2019-02-09] MEDS: HEPARIN SODIUM,PORCINE 5,000 UNIT/ML 1 ML VIAL SQ SCH ×3 (09:02→23:46)
--- NOTE | 2019-02-09 09:25 | P.PN ---
Subjective Progress Note Date: 02/09/19 patient seen and examined at bedside has been up and ambulatory only to the restroom and back has not been ablating the halls. He was able to wean off oxygen still reports shortness of breath but stated it is's improved since yesterday. Reports some difficulty with swallowing, having hoarseness with rep eated bouts of bronchitis. No acute events overnight Objective - Vital Signs Vital signs: Vital Signs Temp 97.8 F 02/09/19 05:00 Pulse 84 02/09/19 05:00 Resp 22 02/09/19 05:00 BP 125/80 02/09/19 05:00 Pulse Ox 95 02/09/19 05:00 Intake & Output 02/08/19 02/09/19 02/09/19 18:59 06:59 18:59 Intake Total 3250 Balance 3250 Intake: Oral 3250 Other: Voiding Method Toilet # Voids 1 4 - Exam Constitutional: No acute distress awake alert and oriented 3, Eyes: Anicteric sclerae, moist conjunctiva, no lid-lag, PERRLA ENMT: NC/AT,Oropharynx clear, no erythema, exudates Neck:Supple, FROM, no masses, or JVD, No carotid bruits; No thyromegaly Lungs: Diminished in the bases, coarse upper airway sounds with cough Cardiovascular: Heart regular in rate and rhythm, No murmurs, gallops, or rubs no peripheral edema Abdominal: Soft Nontender, nom distended, no guarding, no rebound or rigidity, Normoactive bowel sounds No hepatomegaly, No splenomegaly, No palpable mass No abdominal wall hernia noted Skin: Normal temperature, tone, texture, turgor, No induration No subcutaneous nodules, No rash, lesions, No ulcers Extremities:No digital cyanosis No clubbing, Pedal pulses intact and symmetrical Radial pulses intact and symmetrical Normal gait and station, No calf tenderness Psychiatric: Alert and oriented to person, place and time, Appropriate affect Intact judgement Neuro: Muscles Strength 5/5 in all 4 extremities, Sensation to light touch grossly present throughout, Cranial nerves II-XII grossly intact. No focal sensory deficits - Labs CBC & Chem 7: 02/02/19 21:00 02/02/19 21:00 Labs: Abnormal Lab Results - Last 24 Hours (Table) 02/08/19 02/08/19 02/08/19 Range/Units 11:24 17:23 20:05 POC Glucose (mg/dL) 243 H 280 H 299 H (75-99) mg/dL 02/09/19 Range/Units 06:20 POC Glucose (mg/dL) 278 H (75-99) mg/dL Assessment and Plan (1) Acute exacerbation of COPD with asthma Narrative/Plan: * CT of the chest unremarkable. Patient is afebrile with no leukocytosis. BNP is 26. Troponin is less than 0.012 with EKG showing normal sinus rhythm. * Plans: DuoNeb 4 times a day scheduled and as needed for shortness of breath and wheezing. * Patient continued on Solu-Medrol, Perforomist, Tessalon Perles for cough. Promethazine with codeine for cough. * Appreciate pulmonary recommendations. * We'll check a viral panel today Current Visit: Yes Status: Acute Code(s): J44.1 - CHRONIC OBSTRUCTIVE PULMONARY DISEASE W (ACUTE) EXACERBATION; J45.901 - UNSPECIFIED ASTHMA WITH ( ACUTE) EXACERBATION SNOMED Code(s): 8622471534337 (2) Steroid-induced hyperglycemia Narrative/Plan: * Blood sugars elevated 207 - 292 * Continue correctional scale insulin coverage Current Visit: Yes Status: Acute Code(s): R73.9 - HYPERGLYCEMIA, UNSP ECIFIED; T38.0X5A - ADVERSE EFFECT OF GLUCOCORT/SYNTH ANALOG, INIT SNOMED Code(s): 884488698 (3) Essential hypertension Narrative/Plan: * Blood pressure stable controlled on current regimen * Continue to monitor Current Visit: Yes Status: Chronic Code(s): I10 - ESSENTIAL (PRIMARY) HYPERTENSION SNOMED Code(s): 09234722 (4) Hypothyroidism Narrative/Plan: * Continue current Synthroid regimen Current Visit: Yes Status: Chronic Code(s): E03.9 - HYPOTHYROIDISM, UNSPECIFIED SNOMED Code(s): 82932828 Plan: * Continue current treatment plan * Anticipated discharge in 1-2 days
[2019-02-09] MEDS: NICOTINE 14MG/24HR PATCH TRANSDERM SCH (09:36)
[2019-02-09] MEDS: busPIRone HCl 10 MG TAB PO SCH ×3 (09:36→21:35)
[2019-02-09] MEDS: BENZONATATE 100 MG CAP PO SCH ×4 (09:36→21:35)
[2019-02-09] MEDS: cloNIDine HCL 0.1 MG TAB PO SCH ×2 (09:37→20:44)
[2019-02-09] MEDS: FAMOTIDINE 20 MG TAB PO SCH ×2 (09:37→20:45)
[2019-02-09] MEDS: levETIRAcetam 250 MG TAB PO SCH ×2 (09:38→20:46)
[2019-02-09] MEDS: OXcarbazepine 150 MG TAB PO SCH ×2 (09:38→20:46)
[2019-02-09] MEDS: MONTELUKAST 10 MG TAB PO SCH (09:38)
[2019-02-09] MEDS: POTASSIUM CHLORIDE ER 20 MEQ TAB.ER PO SCH (09:38)
[2019-02-09] MEDS: DOXYCYCLINE 100 MG CAP PO SCH ×2 (09:40→20:44)
[2019-02-09] MEDS: IPRATROPIUM-ALBUTEROL 3 ML NEB INHALATION SCH ×4 (09:46→21:27)
[2019-02-09] MEDS: FORMOTEROL FUMARATE 20 MCG/2 ML NEBU INHALATION SCH ×2 (09:46→21:27)
[2019-02-09] MEDS: BUDESONIDE 1 MG/2 ML NEBU INHALATION SCH ×2 (09:46→21:27)
[2019-02-09] MEDS: POLYETHYLENE GLYCOL 3350 17 GM POWD.PACK PO PRN (09:58)
[2019-02-09 12:33] LABS: Glucose,Whole Blood 223 mg/dL (75-99)
[2019-02-09 18:00] LABS: Glucose,Whole Blood 284 mg/dL (75-99)
[2019-02-09 20:29] LABS: Glucose,Whole Blood 231 mg/dL (75-99)
[2019-02-09] MEDS: ATORVASTATIN 40 MG TAB PO SCH (20:44)
[2019-02-09] MEDS: DULoxetine HCL 60 MG CAPSULE.DR PO SCH (20:45)
[2019-02-09] MEDS: IBUPROFEN 600 MG TAB PO PRN (20:47)
[2019-02-09] MEDS: traZODone HCL 50 MG TAB PO SCH (21:35)
[2019-02-09] MEDS: LACTULOSE 20 GM/30 ML CUP PO SCH (21:36)
[2019-02-09] MEDS: BENZOCAINE/MENTHOL LOZENG 1 EACH LOZENGE MUCOUS MEM PRN (21:53)
[2019-02-10] MEDS: PROMETHAZ-COD 6.25-10 MG/5 ML 5 ML CUP PO SCH ×3 (03:27→15:52)
[2019-02-10 06:07] LABS: Glucose,Whole Blood 222 mg/dL (75-99)
[2019-02-10] MEDS: INSULIN ASPART (NovoLOG) 100 UNIT/ML VIAL SQ SCH ×3 (06:15→17:30)
[2019-02-10] MEDS: methylPREDNISolone SOD SUCCI 125 MG/2 ML VIAL IV SCH ×3 (06:16→17:30)
[2019-02-10] MEDS: LEVOTHYROXINE 75 MCG TAB PO SCH (06:18)
[2019-02-10] MEDS: HYDROcodone/APAP 10-325MG 1 EACH TAB PO PRN ×2 (06:19→12:00)
[2019-02-10] MEDS: BENZOCAINE/MENTHOL LOZENG 1 EACH LOZENGE MUCOUS MEM PRN ×4 (06:23→15:53)
[2019-02-10] MEDS: FORMOTEROL FUMARATE 20 MCG/2 ML NEBU INHALATION SCH (08:32)
[2019-02-10] MEDS: IPRATROPIUM-ALBUTEROL 3 ML NEB INHALATION SCH ×3 (08:32→15:14)
[2019-02-10] MEDS: BUDESONIDE 1 MG/2 ML NEBU INHALATION SCH (08:32)
[2019-02-10] MEDS ORDERED: FLUoxetine HCL 20 MG CAP PO SCH (09:00)
--- NOTE | 2019-02-10 10:24 | CDI ---
Documentation Clarification Form Date: 02/10/2019 9:50:22 AM From: Tracy Hyman RN, CCDS Admit Date: 02/05/2019 1:46:00 PM Patient Name: Noemi Bosch Visit Number: [id number] Discharge Date: ATTENTION: The Clinical Documentation Specialists (CDI) and [facility] Coding Staff appreciate your assistance in clarifying documentation. Please respond to the clarification below the line at the bottom and electronically sign. The CDI & [facility] Coding staff will review the response and follow-up if needed. Please note: Queries are made part of the Legal Health Record. If you have any questions, please contact the author of this message via ITS. Dr. Kevin Dwyer Asthma is documented in the ongoing progress notes starting on 02/07/19 and further clarification is needed . History/risk factors: Childhood Asthma, COPD, Bronchitis, Hypertension, Heart failure, Chronic tobacco smoker Clinical Indicators: 48-year-old female present with shortness of breath, increased dyspnea cough congestion and wheezing. She does not use any form of maintenance as per medication. She has used inhaled corticosteroids in the past and currently she is using albuterol rescue inhaler on an as-needed basis. CT Chest: Negative CT of the chest. Minimal focal subsegmental atelectasis right posterior lung base. Vital Signs: 02/10/19@ 08:25 164/104 112 22 98.3 94 % RA Other Clinical Indicators: 02/07/19 (Pulmonary) Still quite congested, bronchospastic, the cough has slighty improved still coughing quite a bit. Lungs sounds are positive for diffuse rhonchi and wheezes. Treatment: Vibromycin PO Solu-Medrol IV (taper) Phenergan With Codine PO Nebulized broncho-dilators, Pulmicort and ,Perforomist Margot Curtis Pulmonary Consults (Dr. Cates): Acute COPD exacerbation with secondary shortness of breath. History of childhood asthma In your professional opinion, can you please further specify the following related to the Asthma diagnosis, if known? With Acute Exacerbation Unable to determine Severity Unable to determine Form or Type Unable to determine (Last Revision: November 2017) MTDD
[2019-02-10] MEDS: NICOTINE 14MG/24HR PATCH TRANSDERM SCH (10:34)
[2019-02-10] MEDS: OXcarbazepine 150 MG TAB PO SCH (10:35)
[2019-02-10] MEDS: POTASSIUM CHLORIDE ER 20 MEQ TAB.ER PO SCH (10:35)
[2019-02-10] MEDS: busPIRone HCl 10 MG TAB PO SCH ×2 (10:36→15:52)
[2019-02-10] MEDS: LACTULOSE 20 GM/30 ML CUP PO SCH ×2 (10:36→15:51)
[2019-02-10] MEDS: BENZONATATE 100 MG CAP PO SCH ×3 (10:37→17:30)
[2019-02-10] MEDS: HEPARIN SODIUM,PORCINE 5,000 UNIT/ML 1 ML VIAL SQ SCH ×2 (10:37→15:52)
[2019-02-10] MEDS: FAMOTIDINE 20 MG TAB PO SCH (10:37)
[2019-02-10] MEDS: cloNIDine HCL 0.1 MG TAB PO SCH (10:37)
[2019-02-10] MEDS: CARVEDILOL 3.125 MG TAB PO SCH ×2 (10:37→17:30)
[2019-02-10] MEDS: DOXYCYCLINE 100 MG CAP PO SCH (10:37)
[2019-02-10] MEDS: MONTELUKAST 10 MG TAB PO SCH (10:38)
[2019-02-10] MEDS: DULoxetine HCL 60 MG CAPSULE.DR PO SCH (10:38)
[2019-02-10] MEDS: levETIRAcetam 250 MG TAB PO SCH (10:39)
--- NOTE | 2019-02-10 10:50 | FL ---
EXAMINATION TYPE: FL barium swallow DATE OF EXAM: 02/10/2019 CLINICAL HISTORY: Dysphagia TECHNIQUE: Single contrast study was performed. COMPARISON: None FINDINGS: Fluoroscopy time is 2 minutes 6 seconds. Number of images: 9 Real-time observation is performed. Esophagus dilates to normal caliber has normal contour to the gas troesophageal junction. Gastroesophageal junction opens to normal caliber. Multiple secondary contrac tions were evident. Reflux into the hypopharynx was evident through multiple episodes. The patient wa s unable to lie on her back or stomach, on her side patient has significant reflux into the hypophary nx. There appear to be dysmotility through the esophagus. Swallowing otherwise appeared normal. IMPRESSION: 1. Dysmotility of the esophagus with secondary contractions causing reflux. Multiple episodes were ob served during the exam without evidence of aspiration despite extensive coughing. Consider modified b arium swallow for additional closer evaluation.
[2019-02-10] MEDS: IBUPROFEN 600 MG TAB PO PRN (12:00)
[2019-02-10 12:19] LABS: Glucose,Whole Blood 199 mg/dL (75-99)
--- NOTE | 2019-02-10 13:38 | P.CONS ---
History of Present Illness - Reason for Consult Consult date: 02/10/19 abnormal MBS Requesting physician: Kevin Dwyer - Chief Complaint dysphagia - History of Present Illness 48-year-old female with a history of EtOH abuse last alcohol drink 01/16/2019 [facility], [facility] usage, asthma, hypertension, IBS, MRSA, C. diff, seizure disorder, tobacco abuse, admitted with shortness of breath hemoptysis acute exacerbation of COPD asthma. She reports persistent exacerbation for at least 2 months now as well as a bout of pneumonia. Consult requested for dysphagia abnormal barium swallow. Fluoroscopy barium swallow the spine reported dysmotility of the esophagus with secondary contractions causing reflux. No evidence of aspiration. No evidence of obstruction. Most recent chemistries white count 8.8. Hemoglobin 10.4. MCV 88. Platelet 349. Influenza not detected. INR 0.9. LFTs within normal limits. CT chest negative. Patient states she had an EGD/colonosocpy 1 year ago in [place] and was normal. She is presently at bedside eating chicken broccoli and muffin. Occasional belching. Review of Systems Constitutional: Denies fever, chills, sweats, weight gain, or loss. HEENT: Negative for migraines, blurred vision or loss, earaches, drainage, tinnitus, oral mucosal lesions, dysphagia, or odynophagia. CARDIAC: Negative for chest pain, arrhythmias, or palpitation. RESPIRATORY: Positive for shortness of breath, reported hemoptysis, cough, denies sputum production. GI: See HPI for pertinent findings. : Negative for hematuria, urgency, frequency, polyuria, or dysuria. GYNc: Denies possibility of . Negative vaginal discharge. MUSCULOSKELETAL: Negative for muscle aches, swelling, arthritis, and arthralgias. NEUROLOGIC: Negative for stroke or TIA. ENDOCRINE: Negative for thyroid problems. SKIN: Negative for rash or itching. PSYCHIATRIC: Negative history for depression and anxiety Past Medical History Past Medical History: Asthma, Heart Failure, COPD, GERD/Reflux, Hypertension, Seizure Disorder Additional Past Medical History / Comment(s): IBS History of Any Multi-Drug Resistant Organisms: C-DIFF, MRSA Year Discovered:: 2016, 2017 MDRO Source:: bowel, right toe Past Surgical History: Section Additional Past Surgical History / Comment(s): trach, peg tube, trach healed now, no longer has peg tube Past Anesthesia/Blood Transfusion Reactions: No Reported Reaction Past Psychological History: Anxiety, Depression Smoking Status: Current every day smoker Past Alcohol Use History: Abuse Past Drug Use History: None Reported - Past Family History Mother Family Medical History: CVA/TIA, Myocardial Infarction (NH) Additional Family Medical History / Comment(s): ETOH Medications and Allergies Home Medications Medication Instructions Recorded Confirmed Type Acetaminophen [Tylenol 8 Hour] 650 mg PO Q4H PRN MDD 6 TAB/24 HR 02/02/19 02/02/19 History Albuterol Inhaler [Ventolin Hfa 2 puff INHALATION RT-Q6H PRN 02/02/19 02/03/19 History Inhaler] Albuterol Nebulized [Ventolin 2.5 mg INHALATION QID PRN 02/02/19 02/02/19 History Nebulized] Atorvastatin [Lipitor] 40 mg PO HS 02/02/19 02/02/19 History Benzonatate [Tessalon Perles] 100 mg PO TID PRN 02/02/19 02/02/19 History Carvedilol [Coreg] 3.125 mg PO BID 02/02/19 02/02/19 History Ibuprofen [Motrin] 600 mg PO Q6HR PRN 02/02/19 02/02/19 History Levothyroxine Sodium [Synthroid] 75 mcg PO DAILY 02/02/19 02/02/19 History Montelukast Sodium [Singulair] 10 mg PO DAILY 02/02/19 02/02/19 History OXcarbazepine [Trileptal] 150 mg PO BID 02/02/19 02/02/19 History Omeprazole [PriLOSEC] 20 mg PO AC-BID 02/02/19 02/02/19 History Ondansetron HCl [Zofran] 8 mg PO Q6H PRN 02/02/19 02/02/19 History Potassium Chloride [Klor-Con 20] 20 meq PO DAILY 02/02/19 02/02/19 History Trimethobenzamide HCl [Tigan] 300 mg PO Q6H PRN 02/02/19 02/02/19 History busPIRone HCl [Buspar] 10 mg PO TID PRN 02/02/19 02/02/19 History cloNIDine HCL [Catapres] 0.1 mg PO BID 02/02/19 02/02/19 History guaiFENesin SYRUP 100MG/5ML 200 mg PO Q6H PRN 02/02/19 02/02/19 History [Robitussin] levETIRAcetam [Keppra] 1,000 mg PO BID 02/02/19 02/02/19 History Budesonide-Formot 160-4.5 Mcg 2 puff INHALATION BID 30 Days #1 02/06/19 Rx [Symbicort 160-4.5 Mcg Inhaler] inhaler DULoxetine HCL [Cymbalta] 60 mg PO BID #60 capsule.dr 02/09/19 Rx Doxycycline [Vibramycin] 100 mg PO BID #14 cap 02/09/19 Rx FLUoxetine HCL [PROzac] 20 mg PO DAILY #30 cap 02/09/19 Rx predniSONE 30 mg PO DAILY #7 tab 02/09/19 Rx traZODone HCL 300 mg PO HS #30 tablet 02/09/19 Rx Topiramate [Topamax] 50 mg PO BID #60 tab 02/10/19 Rx Allergies Allergy/AdvReac Type Severity Reaction Status Date / Time amlodipine [From Norvasc] Allergy Swelling Verified 02/03/19 01:31 cefuroxime [From Ceftin] Allergy RESPIRATORY Verified 02/02/19 20:30 DISTRESS Physical Exam Vitals: Vital Signs Temp Pulse Pulse Resp BP Pulse Ox 02/10/19 12:06 84 02/10/19 11:56 76 02/10/19 08:54 80 02/10/19 08:42 84 02/10/19 08:36 82 02/10/19 08:25 98.3 F 112 H 22 164/104 94 L 02/10/19 05:10 98.7 F 87 22 134/82 97 02/09/19 23:55 98.2 F 85 20 136/83 94 L 02/09/19 21:49 84 02/09/19 21:43 84 02/09/19 21:42 84 02/09/19 21:27 96 02/09/19 20:13 98.3 F 87 20 142/90 96 02/09/19 16:47 92 02/09/19 16:34 88 02/09/19 16:01 98.0 F 89 24 153/99 95 Intake and Output 02/09/19 02/10/19 02/10/19 22:59 06:59 14:59 Intake Total 1000 1000 Balance 1000 1000 Intake: Oral 1000 1000 Other: Voiding Method Toilet Toilet # Voids 4 4 General appearance: The patient is alert, oriented, in no acute distress.Hoarse voice. HET: Head is normocephalic and atraumatic. Pupils are equal and reactive. Oropharynx is clear without lesions. Neck: Supple without lymphadenopathy. Trachea midline. Heart: S1 S2. Regular rate and rhythm. Lungs: Diminished in bases bilaterally. Abdomen: Soft, nontender, nondistended with bowel sounds. No peritoneal signs. No palpable organomegaly or masses. Extremities: Normal skin color and turgor. No cyanosis, rash, ulceration, clubbing, or edema. Radial and pedal pulses are 2/4 bilaterally. Neurological: No focal deficits. Strength and sensation are grossly intact. Results CBC & Chem 7: 02/02/19 21:00 02/02/19 21:00 Labs: Abnormal Lab Results - Last 24 Hours (Table) 02/09/19 02/09/19 02/10/19 Range/Units 17:56 20:27 06:05 POC Glucose (mg/dL) 284 H 231 H 222 H (75-99) mg/dL 02/10/19 Range/Units 12:18 POC Glucose (mg/dL) 199 H (75-99) mg/dL Comments: Barium swallow x-ray report reviewed by Dr. Petty Assessment and Plan (1) Dysphagia Narrative/Plan: 48-year-old female admitted with exacerbation of COPD with reported 2 month history of frequent COPD asthma exacerbations and pneumonia with underlying history of EtOH abuse presently residing at [facility] with reports of dysphagia. Fluoroscopy barium swallow contrast study reported dysmotility of the esophagus with secondary contractions causing reflux without aspiration or obstruction. EGD colonosocpy 1 year reported by patient as normal. Most likely her symptoms are from persistent reactive airway disease COPD exacerbation and underlying GERD. Current Visit: Yes Status: Acute Code(s): R13.10 - DYSPHAGIA, UNSPECIFIED SNOMED Code(s): 89053340 (2) Acute exacerbation of COPD with asthma Current Visit: Yes Status: Acute Code(s): J44.1 - CHRONIC OBSTRUCTIVE PULMONARY DISEASE W (ACUTE) EXACERBATION; J45.901 - UNSPECIFIED ASTHMA WITH (ACUTE) EXACERBATION SNOMED Code(s): 4268324857803 (3) H/O ETOH abuse Current Visit: Yes Status: Acute Code(s): F10.11 - ALCOHOL ABUSE, IN REMISSION SNOMED Code(s): 650963384 Plan: 1. Modified barium swallow ordered. Speech consult; recommend modified textures. 2. Continue with Protonix 40 mg daily. 3. Continue with present medical therapy. 4. Inpatient EGD not advised at this time. Thank you for this kind referral and the opportunity to participate in the care of your patient. This consultation was discussed with Dr. Petty. The impression and plan of care have been directed as dictated.
[2019-02-10] MEDS ORDERED: PANTOPRAZOLE 40 MG TABLET PO SCH (13:45)
[2019-02-10] MEDS: ONDANSETRON 4 MG/2 ML VIAL IVP PRN (15:52)
--- NOTE | 2019-02-10 16:40 | FL ---
EXAMINATION TYPE: FL barium swallow w video DATE OF EXAM: 02/10/2019 COMPARISON: NONE HISTORY: Abnormal esophagram., History of aspiration pneumonia. TECHNIQUE: Fluoroscopy. FINDINGS: Fluoroscopic guidance was provided for the procedure performed in conjunction with the [facility] pathology department. Please see complete report forthcoming from the Speech Pathology departmen t. Various consistencies from thin liquid to solids were administered. Fluoroscopy time 1 minute 59 seconds Number of images: 0. No aspiration or penetration was evident. There is one episode of coughing following the solid bolus. However, no aspiration was observed. No significant pooling was observed in the vallecula. There was normal propulsion of the bolus. Following passage into the proximal esophagus multiple epis odes of reflux into the hypopharynx and oral pharynx were observed. IMPRESSION: 1. Modified barium swallow through the upper oral pharyngeal passage is normal. 2. Multiple episodes of reflux into the oral pharynx and hypopharynx during the exam.
[2019-02-10 17:14] LABS: Glucose,Whole Blood 207 mg/dL (75-99)
[2019-02-10 18:05] VITALS: BP 165/117; PULSE 86; RESP 23; TEMP 98.2
--- NOTE | 2019-02-13 12:56 | P.DS ---
Providers Date of admission: 02/05/19 13:46 Expected date of discharge: 02/10/19 Attending physician: Ryley Johnson MD Consults: 02/03/19 09:52 Consult Physician Routine Consulting Provider: Roberto Rouse Consult Reason/Comments: COPD Do you want consulting provider notified?: Yes 02/10/19 11:44 Consult Physician Routine Consulting Provider: Devon Sher Consult Reason/Comments: abnormal barium swallow study Do you want consulting provider notified?: Yes Primary care physician: Physician Nonstaff - Discharge Diagnosis(es) (1) Acute respiratory failure with hypoxia Status: Resolved (2) Acute exacerbation of COPD with asthma Status: Acute (3) Steroid-induced hyperglycemia Status: Acute (4) Essential hypertension Status: Chronic (5) Hypothyroidism Status: Chronic (6) GERD (gastroesophageal reflux disease) Status: Acute (7) Esophageal dysmotility Status: Acute Hospital Course: The patient is a 48-year-old female with a past with a history of childhood asthma and COPD with chronic tobacco smoker who presented to the ER with chief complaint of increased shortness of breath cough congestion and wheezing and is admitted for acute respiratory failure secondary to acute COPD exacerbation. On initial workup she was noted to have elevated d-dimer of 0.3 CTA of the chest was done that showed no evidence of acute abnormality only mild focal subsegmental atelectasis changes in the right posterior lung. She was started on scheduled albuterol Atrovent DuoNeb breathing treatments and PRN, systemic steroids IV Solu-Medrol, and antibiotics with doxycycline along with Tessalon Perles for cough. The patient continued to have significant coughing a nd pain and Phenergan with codeine was added to her regimen. The patient was noted to have steroid-induced hyperglycemia And was asked initiated on correctional scale insulin coverage. The patient continued having dyspnea and echocardiogram was ordered that showed a preserved ejection fraction of 55-60%, with a normal left atrial size and normal diastolic filling pressures. Patient complained of dysphagia speech consult was ordered barium swallow evaluation is indicative of esophageal dysmotility subsequent barium video swallow was consistent with GERD showing multiple episodes of reflux oropharynx and hypopharynx, the patient was continued on Protonix in addition to her home PPI regimen. As a patient status improved and we were able to wean her off oxygen with good oxygen saturations on room air. The patient did not qualify for home oxygen and she maintained good saturations on pulse oximetry at rest and with exertion. She was subsequently discharged back to rehab facility [facility] in stable condition. This discharge process took approximately 35 minutes Focused exam Respiratory: Diminished in the bases, coarse upper airway sounds, unlabored on room air. Patient Condition at Discharge: Stable Plan - Discharge Summary Discharge Rx Participant: Yes New Discharge Prescriptions: New Budesonide-Formot 160-4.5 Mcg [Symbicort 160-4.5 Mcg Inhaler] 2 puff INHALATION BID 30 Days #1 inhaler predniSONE 30 mg PO DAILY #7 tab Doxycycline [Vibramycin] 100 mg PO BID #14 cap Topiramate [Topamax] 50 mg PO BID #60 tab Pantoprazole [Protonix] 40 mg PO AC-BRKFST #30 tablet.dr Continue Albuterol Inhaler [Ventolin Hfa Inhaler] 2 puff INHALATION RT-Q6H PRN PRN Reason: Shortness Of Breath Ibuprofen [Motrin] 600 mg PO Q6HR PRN PRN Reason: Pain Acetaminophen [Tylenol 8 Hour] 650 mg PO Q4H PRN MDD 6 TAB/24 HR PRN Reason: Pain Montelukast Sodium [Singulair] 10 mg PO DAILY Carvedilol [Coreg] 3.125 mg PO BID levETIRAcetam [Keppra] 1,000 mg PO BID Levothyroxine Sodium [Synthroid] 75 mcg PO DAILY Atorvastatin [Lipitor] 40 mg PO HS Trimethobenzamide HCl [Tigan] 300 mg PO Q6H PRN PRN Reason: Nausea And Vomiting guaiFENesin SYRUP 100MG/5ML [Robitussin] 200 mg PO Q6H PRN PRN Reason: Cough Albuterol Nebulized [Ventolin Nebulized] 2.5 mg INHALATION QID PRN PRN Reason: Shortness Of Breath busPIRone HCl [Buspar] 10 mg PO TID PRN PRN Reason: Anxiety cloNIDine HCL [Catapres] 0.1 mg PO BID Omeprazole [PriLOSEC] 20 mg PO AC-BID OXcarbazepine [Trileptal] 150 mg PO BID traZODone HCL 300 mg PO HS #30 tablet Potassium Chloride [Klor-Con 20] 20 meq PO DAILY #30 tab.er.prt Benzonatate [Tessalon Perles] 100 mg PO TID PRN #21 cap PRN Reason: Cough Ondansetron HCl [Zofran] 8 mg PO Q6H PRN #20 tablet PRN Reason: Nausea And Vomiting Changed DULoxetine HCL [Cymbalta] 60 mg PO BID #60 capsule. FLUoxetine HCL [PROzac] 20 mg PO DAILY #30 cap Discharge Medication List Acetaminophen [Tylenol 8 Hour] 650 mg PO Q4H PRN MDD 6 TAB/24 HR 02/02/19 [History] Albuterol Inhaler [Ventolin Hfa Inhaler] 2 puff INHALATION RT-Q6H PRN 02/02/19 [History] Albuterol Nebulized [Ventolin Nebulized] 2.5 mg INHALATION QID PRN 02/02/19 [History] Atorvastatin [Lipitor] 40 mg PO HS 02/02/19 [History] Carvedilol [Coreg] 3.125 mg PO BID 02/02/19 [History] Ibuprofen [Motrin] 600 mg PO Q6HR PRN 02/02/19 [History] Levothyroxine Sodium [Synthroid] 75 mcg PO DAILY 02/02/19 [History] Montelukast Sodium [Singulair] 10 mg PO DAILY 02/02/19 [History] OXcarbazepine [Trileptal] 150 mg PO BID 02/02/19 [History] Omeprazole [PriLOSEC] 20 mg PO AC-BID 02/02/19 [History] Trimethobenzamide HCl [Tigan] 300 mg PO Q6H PRN 02/02/19 [History] busPIRone HCl [Buspar] 10 mg PO TID PRN 02/02/19 [History] cloNIDine HCL [Catapres] 0.1 mg PO BID 02/02/19 [History] guaiFENesin SYRUP 100MG/5ML [Robitussin] 200 mg PO Q6H PRN 02/02/19 [History] levETIRAcetam [Keppra] 1,000 mg PO BID 02/02/19 [History] Budesonide-Formot 160-4.5 Mcg [Symbicort 160-4.5 Mcg Inhaler] 2 puff INHALATION BID 30 Days #1 inhaler 02/06/19 [Rx] DULoxetine HCL [Cymbalta] 60 mg PO BID #60 capsule. 02/09/19 [Rx] Doxycycline [Vibramycin] 100 mg PO BID #14 cap 02/09/19 [Rx] FLUoxetine HCL [PROzac] 20 mg PO DAILY #30 cap 02/09/19 [Rx] predniSONE 30 mg PO DAILY #7 tab 02/09/19 [Rx] traZODone HCL 300 mg PO HS #30 tablet 02/09/19 [Rx] Benzonatate [Tessalon Perles] 100 mg PO TID PRN #21 cap 02/10/19 [Rx] Ondansetron HCl [Zofran] 8 mg PO Q6H PRN #20 tablet 02/10/19 [Rx] Pantoprazole [Protonix] 40 mg PO AC-BRKFST #30 tablet. 02/10/19 [Rx] Potassium Chloride [Klor-Con 20] 20 meq PO DAILY #30 tab.er.prt 02/10/19 [Rx] Topiramate [Topamax] 50 mg PO BID #60 tab 02/10/19 [Rx] Follow up Appointment(s)/Referral(s): Alyssa Petty MD [STAFF PHYSICIAN] - As Needed Nonstaff,Physician [Primary Care Provider] - 1 Week Roberto Rouse MD [STAFF PHYSICIAN] - 1 Week Activity/Diet/Wound Care/Special Instructions: Continue low acidic soft diet as tolerated. information has been relayed to you. fluids are always encouraged. practice good hand washing. continue home medications as prescribed to you. follow up with physicians as advised. Call primary care physician or return to ER with questions comments concerns worsening returning symptoms, fever 101.1 or higher, increased work of breathing not relieved with medication or breathing treatments, not tolerating diet or fluids, pain that is not controlled by medications rx ie tyelnol motrin. Discharge Disposition: TRANSFER TO SNF/ECF
== END 2019-02-10 19:12 | DRG 190 ==
LOC: EC 19:59 → 3NMEDONC 02-03 00:22 → OBSVTOIN 02-05 13:46 → 6PED 02-06 23:03
PROVIDERS: ADMIT Internal Medicine; ATTEND Internal Medicine
DX: J44.1 Chronic obstructive pulmonary disease with (acute) exacerbation (principal); J96.01 Acute respiratory failure with hypoxia; J45.901 Unspecified asthma with (acute) exacerbation; J98.11 Atelectasis; F10.239 Alcohol dependence with withdrawal, unspecified; I50.32 Chronic diastolic (congestive) heart failure; R04.2 Hemoptysis; K21.9 Gastro-esophageal reflux disease without esophagitis; K22.4 Dyskinesia of esophagus; Z87.01 Personal history of pneumonia (recurrent); E03.9 Hypothyroidism, unspecified; E04.9 Nontoxic goiter, unspecified; E66.9 Obesity, unspecified; Z68.38 Body mass index [BMI] 38.0-38.9, adult; F17.210 Nicotine dependence, cigarettes, uncomplicated; F32.9 Major depressive disorder, single episode, unspecified; F41.9 Anxiety disorder, unspecified; G40.909 Epilepsy, unspecified, not intractable, without status epilepticus; I11.0 Hypertensive heart disease with heart failure; K58.9 Irritable bowel syndrome, unspecified; T38.0X5A Adverse effect of glucocorticoids and synthetic analogues, initial encounter; Z79.51 Long term (current) use of inhaled steroids; Z79.890 Hormone replacement therapy; Z79.899 Other long term (current) drug therapy; Z82.49 Family history of ischemic heart disease and other diseases of the circulatory system; Z87.09 Personal history of other diseases of the respiratory system; R13.10 Dysphagia, unspecified; Z86.14 Personal history of Methicillin resistant Staphylococcus aureus infection; Z82.3 Family history of stroke
CPT/HCPCS: 36415; 71260; 74220; 74230; 80053; 83735; 83880; 84484; 85025; 85379; 85610; 85730; 87252; 87496; 87498; 87502; 87529; 87798; 93005; 93306; 94640; 94760; 96365; 96366; 96375; 99285